=== PATIENT | female | born 2000 | race Caucasian/White ===

== ENCOUNTER → 2021-12-08 09:34 | Outpatient (BNVA) | payer OTHER, SELFPAY | PROVIDERS: Visit Provider Family Medicine Adult Medicine | DX: R39.9 Unspecified symptoms and signs involving the genitourinary system (principal); N20.0 Calculus of kidney; N39.0 Urinary tract infection, site not specified; Z68.29 Body mass index [BMI] 29.0-29.9, adult | CPT/HCPCS: 81000 ==

== ENCOUNTER → 2022-03-15 10:57 | Outpatient (BNVA) | payer OTHER, SELFPAY | PROVIDERS: Visit Provider Internal Medicine Rheumatology | DX: M06.9 Rheumatoid arthritis, unspecified (principal); R76.8 Other specified abnormal immunological findings in serum; Z79.899 Other long term (current) drug therapy; M05.79 Rheumatoid arthritis with rheumatoid factor of multiple sites without organ or systems involvement; Z71.85 Encounter for immunization safety counseling; Z11.59 Encounter for screening for other viral diseases | CPT/HCPCS: 80076; 82306; 82565; 85025; 85651; 86140; 86235; 86376; 86704; 86803; 87340 ==

== ENCOUNTER 2022-04-04 16:42 | Outpatient (CLI) | payer OTHER, SELFPAY ==
[2022-04-04 17:49] LABS: Basophils % 0.6 %; Eosinophils # 0.3 10^3/uL (0.0-0.8); Eosinophils % 3.7 %; Hematocrit 38.6 % (37.0-47.0); Hemoglobin 12.5 g/dL (11.5-15.3); Lymphocytes # 2.9 10^3/uL (0.8-4.8); Lymphocytes % 41.4 %; Mean Corpuscular HGB Conc 32.4 g/dL (30.0-36.0); Mean Corpuscular Hemoglobin 28.2 pg (28.0-34.0); Mean Corpuscular Volume 86.9 fl (81-99); Mean Platelet Volume 10.1 fL (7.4-10.4); Monocytes # 0.6 10^3/uL (0.2-0.9); Monocytes % 8.1 %; Neutrophils # 3.22 10^3/uL (1.8-7.7); Neutrophils % 46.1 %; Nucleated Red Blood Cells % 0 %; Platelet Count 363 10^3/cmm (130-400); Red Blood Count 4.44 10^6/uL (4.1-5.3); Red Cell Distribution Width 12.7 % (12.1-15.1)
[2022-04-04 17:57] LABS: Erythrocyte Sedimentation Rate < 1 mm/hr (0-15)
[2022-04-04 22:13] LABS: Thyroid Stimulating Hormone 4.34 uIU/mL (0.27-4.20)
== END 2022-04-04 16:43 | disposition home or self-care (01) ==
LOC: LAB 16:47
PROVIDERS: PCP Nurse Practitioner Acute Care; Visit Provider Internal Medicine Rheumatology
DX: M05.79 Rheumatoid arthritis with rheumatoid factor of multiple sites without organ or systems involvement (principal); R76.8 Other specified abnormal immunological findings in serum; Z79.899 Other long term (current) drug therapy; M06.9 Rheumatoid arthritis, unspecified
CPT/HCPCS: 84439; 84443; 85025; 85651

== ENCOUNTER → 2022-11-07 10:20 | Outpatient (BNVA) | payer OTHER, SELFPAY | PROVIDERS: PCP Nurse Practitioner Acute Care; Visit Provider Nurse Practitioner | DX: R39.9 Unspecified symptoms and signs involving the genitourinary system (principal); J01.90 Acute sinusitis, unspecified; J32.9 Chronic sinusitis, unspecified | CPT/HCPCS: 81000; 81025 ==

== ENCOUNTER → 2023-01-15 16:00 | Outpatient (BNVA) | payer OTHER, SELFPAY | PROVIDERS: PCP Nurse Practitioner Acute Care; Visit Provider Obstetrics & Gynecology | DX: Z00.00 Encounter for general adult medical examination without abnormal findings (principal); Z12.4 Encounter for screening for malignant neoplasm of cervix | CPT/HCPCS: 84443; 85025; 88175 ==

== ENCOUNTER → 2023-02-06 07:54 | Outpatient (BNVA) | payer OTHER, SELFPAY | PROVIDERS: PCP Nurse Practitioner Acute Care; Visit Provider Obstetrics & Gynecology | DX: N93.9 Abnormal uterine and vaginal bleeding, unspecified (principal) | CPT/HCPCS: 76830 ==

== ENCOUNTER 2023-04-18 08:09 | Outpatient (CLI) | payer OTHER, SELFPAY ==
[2023-04-18 09:05] LABS: Estmated Average Glucose 94; Hemoglobin A1C 4.9 % (4.0-6.0)
[2023-04-18 09:12] LABS: Free T4 Free Thyroxine 1.25 ng/dL (0.82-1.77); Testosterone Total 143.6 ng/dL (8.4-48.1); Thyroid Stimulating Hormone 5.87 uIU/mL (0.27-4.20)
== END 2023-04-18 08:10 | disposition home or self-care (01) ==
PROVIDERS: PCP Nurse Practitioner Acute Care; Visit Provider Internal Medicine
DX: E03.9 Hypothyroidism, unspecified (principal); Z78.9 Other specified health status; E06.3 Autoimmune thyroiditis; N92.6 Irregular menstruation, unspecified; R63.5 Abnormal weight gain
CPT/HCPCS: 36415; 83036; 84403; 84439; 84443

== ENCOUNTER 2023-04-19 15:34 | Outpatient (CLI) | payer OTHER, SELFPAY ==
[2023-04-19 17:00] LABS: Follicle Stimulating Hormone 5.2 mIU/mL; Prolactin 14.53 ng/mL (4.8-23.3)
[2023-04-22 15:49] LABS: Dehydroepiandrosterone Sulfate 266 mcg/dL (14-349)
== END 2023-04-19 15:35 | disposition home or self-care (01) ==
LOC: LAB 15:37
PROVIDERS: PCP Nurse Practitioner Acute Care; Visit Provider Internal Medicine
DX: E03.8 Other specified hypothyroidism (principal); E28.2 Polycystic ovarian syndrome; R63.5 Abnormal weight gain; R79.89 Other specified abnormal findings of blood chemistry
CPT/HCPCS: 36415; 82627; 83001; 83498; 84146; 84702

== ENCOUNTER 2023-04-25 07:15 | Outpatient (CLI) | payer OTHER, SELFPAY ==
[2023-04-25 08:11] LABS: Testosterone Total 81.7 ng/dL (8.4-48.1)
== END 2023-04-25 07:16 | disposition home or self-care (01) ==
PROVIDERS: PCP Nurse Practitioner Acute Care; Visit Provider Internal Medicine
DX: E03.8 Other specified hypothyroidism (principal); E28.2 Polycystic ovarian syndrome; R63.5 Abnormal weight gain; R79.89 Other specified abnormal findings of blood chemistry
CPT/HCPCS: 36415; 84403

== ENCOUNTER → 2023-05-06 16:20 | Outpatient (BNVA) | payer OTHER, SELFPAY | PROVIDERS: PCP Nurse Practitioner Acute Care; Visit Provider Emergency Medicine | DX: R30.0 Dysuria (principal) | CPT/HCPCS: 81000 ==

== ENCOUNTER 2023-09-30 08:46 | Outpatient (CLI) | payer OTHER, SELFPAY | END 2023-09-30 08:47 | disposition home or self-care (01) | LOC: LAB 08:47 | PROVIDERS: PCP Nurse Practitioner Acute Care; Visit Provider Internal Medicine | DX: N92.6 Irregular menstruation, unspecified (principal) | CPT/HCPCS: 36415; 84702 ==

== ENCOUNTER 2023-10-02 07:45 | Outpatient (CLI) | payer OTHER, SELFPAY ==
[2023-10-02 08:20] LABS: HCG Quantitative 4.18 mIU/mL
== END 2023-10-02 07:46 | disposition home or self-care (01) ==
LOC: LAB 07:46
PROVIDERS: PCP Nurse Practitioner Acute Care; Visit Provider Obstetrics & Gynecology
DX: N92.6 Irregular menstruation, unspecified (principal)
CPT/HCPCS: 36415; 84702

== ENCOUNTER 2023-10-02 09:07 | Emergency (ER) | payer OTHER, SELFPAY ==
[2023-10-02 09:14] VITALS: BMI 35.4
[2023-10-02 09:16] VITALS: BP 135/82; PULSE 89; RESP 16; TEMP 37.1; O2SAT 98
--- NOTE | 2023-10-02 09:54 | ED_ITS ---
HPI - 2 General: Chief complaint: Vaginal Bleeding Stated complaint: abd pain, vaginal bleeding 3-4 weeks Time Seen by Provider: 10/02/23 09:54 Source: patient Mode of arrival: ambulatory History of Present Illness: 23-year-old female presents emergency ro om with complaint of left-sided pelvic pain and vaginal bleeding began this morning. She recently had a home positive test had a beta-hCG 2 days ago that was 17. She has a history of PCOS and previous first trimester miscarriage 4 months ago. No recent illness fever sweats or chills she previously had an appendectomy no previous tubal pregnancies. MD Complaint: abdominal pain and vaginal bleeding Onset (ago): hour(s) Pain Consistency: constant Location: pelvis Severity: severe Quality: Cramping Relieving factors: none Exacerbating factors: none Vaginal bleeding: heavy Associated symptoms: Reports vaginal bleeding; Deny abdominal pain, dyspareunia, dysuria, headache(s), malaise, nausea, rash, seizures, short of breath, syncope, vaginal discharge, visual changes, vomiting or weakness Review of Systems 2 Const: Denies: fever(s), chills or malaise Card: Denies: chest pain or syncope Resp: Denies: dyspnea GI: Denies: abdominal pain, nausea or vomiting : Denies: dysuria, urinary frequency, urinary urgency, vaginal discharge or dyspareunia Musc: Denies: neck pain or back pain Skin/Breast: Denies: rash Neuro: Denies: headache(s) PFSH ED 2 PFSH: Medical History Tinea corporis Hypothyroidism PCOS (polycystic ovarian syndrome) Irregular periods High risk medication use PSVT (paroxysmal supraventricular tachycardia) BBB (bundle branch block) Right Kidney stone on left side Surgical History S/P ACL repair History of appendectomy Family History Brother Rheumatoid arthritis Other CAD (coronary artery disease) Diabetes Family history of premature coronary artery disease Hyperlipidemia Hypertension Denies family history of Colon cancer Ovarian cancer Heart disease Breast cancer Uterine cancer Thyroid disease Stroke Social History Smoking and tobacco/nicotine status: never used tobacco/nicotine Physical Exam 2 Const: GENERAL APPEARANCE: cooperative and comfortable O RIENTATION/CONSCIOUSNESS: Yes awake HENMT: COMMON NORMALS: normocephalic, atraumatic and hearing grossly normal bilaterally HEAD & SCALP: normocephalic and atraumatic Resp: COMMON NORMALS: normal respiratory effort, No retractions, No use of accessory muscles and clear to auscultation bilaterally AUSCULTATION: clear to auscultation bilaterally Cardio: COMMON NORMALS: regular rate, regular rhythm and No murmurs present (Cardio) RATE: regular rate RHYTHM: regular rhythm GI: COMMON NORMALS: No hepatosplenomegaly present AUSCULTATION: Yes normoactive bowel sounds PALPATION: Yes Tenderness to palpation present (GI) Details: LLQ, No Guarding due to palpation present (GI) and Yes No hepatosplenomegaly present : SPECULUM EXAM - VAGINA: Yes vaginal bleeding OB/EXTERNAL & SPECULUM: v aginal bleeding Extremity: COMMON NORMALS: normal to inspection, capillary refill normal, no clubbing, cyanosis or edema, no calf tenderness and no pedal edema Skin: COMMON NORMALS: no rashes or lesions noted GENERAL SKIN EXAM: no rashes or lesions noted Course 2 Vital Signs: Vital signs: Vital Signs Temperature 98.7 F 10/02/23 09:16 Pulse Rate 68 10/02/23 12:20 Respiratory Rate 18 10/02/23 10:48 Blood Pressure 131/92 10/02/23 12:20 Pulse Oximetry 96 10/02/23 12:20 Oxygen Delivery Me thod Room Air 10/02/23 12:20 MDM - OB/Uterine Contractions Medical Decision Making Labs reviewed. Beta-hCG is undetectable was 17 earlier this week. She did have some products of conception at the office on pelvic exam. These were removed. Minimal bleeding from the os at this time. Pain improved with ketorolac and morphine given. Will discharge patient home hydrocodone to use as needed recheck if has any worsening problems. Follow-up with primary care. Medical Records I reviewed the patient's medical records. Lab Data I reviewed the patient's lab results. 10/02/23 09:46 10/02/23 09:46 Laboratory Results WBC 8.24 10^3/uL (3.29-11.43) 10/02/23 09:46 RBC 4.97 10^6/uL (3.85-5.65) 10/02/23 09:46 Hgb 13.40 g/dL (11.27-16.99) 10/02/23 09:46 Hct 41.2 % (36-47) 10/02/23 09:46 MCV 82.9 fl (85-98) L 10/02/23 09:46 MCH 27.0 pg (27-33) 10/02/23 09:46 MCHC 32.5 g/dL (30-55) 10/02/23 09:46 RDW 13.6 % (12.1-15.1) 10/02/23 09:46 Plt Count 401 10^3/cmm (157-399) H 10/02/23 09:46 MPV 9.5 fL (7.4-10.4) 10/02/23 09:46 Neut % (Auto) 66.9 % 10/02/23 09:46 Lymph % (Auto) 25.1 % 10/02/23 09:46 [place] % (Auto) 5.8 % 10/02/23 09:46 Eos % (Auto) 1.5 % 10/02/23 09:46 Baso % (Auto) 0.5 % 10/02/23 09:46 Neut # (Auto) 5.51 10^3/uL (1.8-7.7) 10/02/23 09:46 Lymph # (Auto) 2.1 10^3/uL (0.8-4.8) 10/02/23 09:46 [place] # (Auto) 0.5 10^3/uL (0.2-0.9) 10/02/23 09:46 Eos # (Auto) 0.1 10^3/uL (0.0-0.8) 10/02/23 09:46 Baso # (Auto) 0.0 10^3/uL (0.0-0.1) 10/02/23 09:46 Nucleated RBC % (auto) 0 % 10/02/23 09:46 Nucleated RBCs # 0.0 /100WBC 10/02/23 09:46 Sodium 139 mmol/L (136-145) 10/02/23 09:46 Potassium 3.8 mmol/L (3.5-5.1) 10/02/23 09:46 Chloride 106 mmol/L (98-107) 10/02/23 09:46 Carbon Dioxide 24 mmol/L (22-29) 10/02/23 09:46 Anion Gap 12.8 (5-19) 10/02/23 09:46 BUN 11 mg/dL (6-20) 10/02/23 09:46 Creatinine 0.7 mg/dL (0.5-0.9) 10/02/23 09:46 GFR Calculation 102.8 mL/min (90-130) 10/02/23 09:46 Glucose 100 mg/dL (65-115) 10/02/23 09:46 Calculated Osmolality 287 mOsm/kg (285-295) 10/02/23 09:46 Calcium 9.3 mg/dL (8.5-10.5) 10/02/23 09:46 Total Bilirubin 0.3 mg/dL (0.15-1.2) 10/02/23 09:46 AST 19 U/L (0-32) 10/02/23 09:46 ALT 27 U/L (0-33) 10/02/23 09:46 Alkaline Phosphatase 73 U/L (35-105) 10/02/23 09:46 Total Protein 7.1 g/dL (6.6-8.7) 10/02/23 09:46 Albumin 4.0 g/dL (3.5-5.2) 10/02/23 09:46 Globulin 3.1 g/dL (1.3-4.6) 10/02/23 09:46 HCG, Qual Negative (Negative) 10/02/23 09:46 Blood Type A Positive 10/02/23 09:46 Rho(D) Type Rh positive 10/02/23 09:46 No radiology studies performed this visit Discharge Plan Discharge Patient Disposition: Home Clinical Impression: Miscarriage Condition: Stable Prescriptions: New hydrocodone-acetaminophen 5-325 mg tablet 1 tab PO Q6H PRN (Reason: pain) Qty: 10 0RF Discharge Orders: Discharge ED (Routine); Ordered 10/02/23 Ordered By: Shaun Sanchez Referrals: Orestes Peterson MD [Primary Care Provider] - Patient Instructions: Miscarriage (ED), Opioid Safety, Pain Management Activity Restrictions/Additional Instructions: Thank you for choosing [facility] for your healthcare needs today. Please realize this is an emergency room and that we are providing you with a medical screening exam and this may not be complete and all inclusive of all the testing and or work up that you may need to determine your ailment or severity of your illness. It is very important that you follow up as instructed or that you return to the Emergency Department should you have concerns or if your condition changes or worsens in any way. Coding Level of Care Code ED Hourly Sign Language Interpreter for Paulina Sawant
[2023-10-02 09:55] LABS: Basophils % 0.5 %; Eosinophils # 0.1 10^3/uL (0.0-0.8); Eosinophils % 1.5 %; Hematocrit 41.2 % (36-47); Lymphocytes # 2.1 10^3/uL (0.8-4.8); Lymphocytes % 25.1 %; Mean Corpuscular HGB Conc 32.5 g/dL (30-55); Mean Corpuscular Volume 82.9 fl (85-98); Mean Platelet Volume 9.5 fL (7.4-10.4); Monocytes # 0.5 10^3/uL (0.2-0.9); Monocytes % 5.8 %; Neutrophils # 5.51 10^3/uL (1.8-7.7); Neutrophils % 66.9 %; Nucleated Red Blood Cells % 0 %; Platelet Count 401 10^3/cmm (157-399); Red Blood Count 4.97 10^6/uL (3.85-5.65); Red Cell Distribution Width 13.6 % (12.1-15.1); White Blood Count 8.24 10^3/uL (3.29-11.43)
[2023-10-02 10:15] LABS: HCG, Serum Qual Negative (Negative)
[2023-10-02 10:17] LABS: Alanine Aminotransferase 27 U/L (0-33); Alkaline Phosphatase 73 U/L (35-105); Anion Gap 12.8 (5-19); Aspartate Amino Transferase 19 U/L (0-32); Blood Urea Nitrogen 11 mg/dL (6-20); Calcium 9.3 mg/dL (8.5-10.5); Carbon Dioxide 24 mmol/L (22-29); Chloride 106 mmol/L (98-107); Globulin 3.1 g/dL (1.3-4.6); Glomerular Filtration Rate 102.8 mL/min (90-130); Glucose 100 mg/dL (65-115); Osmolality Calculated 287 mOsm/kg (285-295); Potassium 3.8 mmol/L (3.5-5.1); Sodium 139 mmol/L (136-145); Total Bilirubin 0.3 mg/dL (0.15-1.2); Total Protein 7.1 g/dL (6.6-8.7)
[2023-10-02 10:48] VITALS: RESP 18
[2023-10-02] MEDS: ketorolac 30 mg/mL INJ IVP (12:17)
[2023-10-02] MEDS: morphine 4 mg/mL SDV 1 mL IVP (12:19)
[2023-10-02 12:20] VITALS: BP 131/92; PULSE 68; O2SAT 96
== END 2023-10-02 13:04 | disposition home or self-care (01) ==
PROVIDERS: Emergency Provider Family Medicine; PCP Family Medicine Adult Medicine
DX: O03.9 Complete or unspecified spontaneous abortion without complication (principal)
CPT/HCPCS: 36415; 80053; 84703; 85025; 86850; 86900; 96374; 96375; 99284; J1885; J2270

== ENCOUNTER → 2023-10-16 09:45 | Outpatient (BNVA) | payer OTHER, SELFPAY | PROVIDERS: PCP Family Medicine Adult Medicine; Visit Provider Obstetrics & Gynecology | DX: N92.6 Irregular menstruation, unspecified (principal) | CPT/HCPCS: 84146; 84443 ==

== ENCOUNTER 2023-12-10 08:14 | Outpatient (CLI) | payer OTHER, SELFPAY ==
[2023-12-10 09:30] LABS: Free T4 Free Thyroxine 1.27 ng/dL (0.82-1.77); Thyroid Stimulating Hormone 3.72 uIU/mL (0.27-4.20)
== END 2023-12-10 08:15 | disposition home or self-care (01) ==
LOC: LAB 08:15
PROVIDERS: PCP Family Medicine Adult Medicine; Visit Provider Internal Medicine
DX: E03.8 Other specified hypothyroidism (principal); E06.3 Autoimmune thyroiditis
CPT/HCPCS: 36415; 84439; 84443

== ENCOUNTER 2024-02-07 16:32 | Outpatient (CLI) | payer OTHER, SELFPAY ==
[2024-02-07 18:04] LABS: Cholesterol 188 mg/dL (0-200); HDL Cholesterol 33 mg/dL (60-100); LDL Cholesterol Calculated 131 mg/dL (50-129); LDL HDL Ratio 3.97 RATIO (0.00-3.22); Triglycerides 118 mg/dL (0-150)
== END 2024-02-07 16:33 | disposition home or self-care (01) ==
LOC: LAB 16:34
PROVIDERS: PCP Family Medicine Adult Medicine; Visit Provider Internal Medicine
DX: E03.9 Hypothyroidism, unspecified (principal)
CPT/HCPCS: 36415; 80061; 83525

== ENCOUNTER → 2024-02-10 12:47 | Outpatient (BNVA) | payer OTHER, SELFPAY | PROVIDERS: PCP Family Medicine Adult Medicine; Visit Provider Internal Medicine | DX: E03.9 Hypothyroidism, unspecified (principal) | CPT/HCPCS: 36415; 83525 ==

== ENCOUNTER 2024-02-19 10:55 | Outpatient (CLI) | payer OTHER, SELFPAY ==
[2024-02-19 11:36] LABS: HCG Quantitative 69.78 mIU/mL
== END 2024-02-19 10:56 | disposition home or self-care (01) ==
LOC: LAB 10:56
PROVIDERS: PCP Family Medicine Adult Medicine; Visit Provider Obstetrics & Gynecology
DX: N92.6 Irregular menstruation, unspecified; E03.9 Hypothyroidism, unspecified
CPT/HCPCS: 36415; 84702

== ENCOUNTER 2024-02-21 11:45 | Outpatient (CLI) | payer OTHER, SELFPAY | END 2024-02-21 11:46 | disposition home or self-care (01) | LOC: LAB 11:48 | PROVIDERS: PCP Family Medicine Adult Medicine; Visit Provider Obstetrics & Gynecology | DX: N92.6 Irregular menstruation, unspecified (principal) | CPT/HCPCS: 84702 ==

== ENCOUNTER → 2024-04-01 09:02 | Outpatient (BNVA) | payer OTHER, SELFPAY | PROVIDERS: PCP Family Medicine Adult Medicine; Visit Provider Nurse Practitioner Women's Health | DX: N92.6 Irregular menstruation, unspecified (principal); I48.91 Unspecified atrial fibrillation; I47.10 Supraventricular tachycardia, unspecified | CPT/HCPCS: 80307; 81025; 84315; 84439; 84443; 84481; 85025; 86592; 86762; 86803; 86850; 86900; 87077; 87086; 87184; 87340; 87491; 87591; 87806 ==

== ENCOUNTER → 2024-04-08 14:20 | Outpatient (BNVA) | payer OTHER, SELFPAY | PROVIDERS: PCP Family Medicine Adult Medicine; Visit Provider Nurse Practitioner Women's Health | DX: Z36.87 Encounter for antenatal screening for uncertain dates (principal) | CPT/HCPCS: 76801 ==

== ENCOUNTER → 2024-04-14 09:42 | Outpatient (BNVA) | payer OTHER, SELFPAY | PROVIDERS: PCP Family Medicine Adult Medicine; Visit Provider Nurse Practitioner Women's Health | DX: Z34.90 Encounter for supervision of normal pregnancy, unspecified, unspecified trimester (principal) | CPT/HCPCS: 84439; 84443; 84481 ==

== ENCOUNTER → 2024-04-30 14:42 | Outpatient (BNVA) | payer OTHER, SELFPAY | PROVIDERS: PCP Family Medicine Adult Medicine; Visit Provider Internal Medicine | DX: R00.1 Bradycardia, unspecified (principal) | CPT/HCPCS: 93005 ==

== ENCOUNTER → 2024-05-14 08:18 | Outpatient (BNVA) | payer OTHER, SELFPAY | PROVIDERS: PCP Family Medicine Adult Medicine; Visit Provider Nurse Practitioner Women's Health | DX: O23.41 Unspecified infection of urinary tract in pregnancy, first trimester (principal); Z3A.10 10 weeks gestation of pregnancy; E06.3 Autoimmune thyroiditis; E03.9 Hypothyroidism, unspecified | CPT/HCPCS: 82105; 84315; 84443 ==

== ENCOUNTER → 2024-05-28 09:48 | Outpatient (BNVA) | payer OTHER, SELFPAY | PROVIDERS: PCP Family Medicine Adult Medicine; Visit Provider Nurse Practitioner Women's Health | DX: O20.8 Other hemorrhage in early pregnancy (principal); Z3A.00 Weeks of gestation of pregnancy not specified | CPT/HCPCS: 76815; 84315 ==

== ENCOUNTER → 2024-06-11 14:16 | Outpatient (BNVA) | payer OTHER, SELFPAY | PROVIDERS: PCP Family Medicine Adult Medicine; Visit Provider Obstetrics & Gynecology | DX: Z36.2 Encounter for other antenatal screening follow-up (principal); Z3A.19 19 weeks gestation of pregnancy | CPT/HCPCS: 76805 ==

== ENCOUNTER → 2024-07-08 13:42 | Outpatient (BNVA) | payer OTHER, SELFPAY | PROVIDERS: PCP Family Medicine Adult Medicine; Visit Provider Nurse Practitioner Women's Health | DX: Z34.90 Encounter for supervision of normal pregnancy, unspecified, unspecified trimester (principal); Z3A.10 10 weeks gestation of pregnancy | CPT/HCPCS: 84315; 84443; 87086 ==

== ENCOUNTER → 2024-08-06 14:09 | Outpatient (BNVA) | payer OTHER, SELFPAY | PROVIDERS: PCP Family Medicine Adult Medicine; Visit Provider Nurse Practitioner Women's Health | DX: Z34.93 Encounter for supervision of normal pregnancy, unspecified, third trimester (principal) | CPT/HCPCS: 82950; 84315; 85025 ==

== ENCOUNTER → 2024-08-13 08:45 | Outpatient (BNVA) | payer OTHER, SELFPAY | PROVIDERS: PCP Family Medicine Adult Medicine; Visit Provider Obstetrics & Gynecology | DX: Z34.92 Encounter for supervision of normal pregnancy, unspecified, second trimester (principal) | CPT/HCPCS: 82951; 82952 ==

== ENCOUNTER 2024-09-14 05:42 | Outpatient (CLI) | payer OTHER, SELFPAY ==
[2024-09-14] VITALS (40 sets, daily range): BP systolic 129; BP diastolic 85; PULSE 81–127; O2SAT 86–100; BMI 40.0
[2024-09-14] MEDS: lactated ringers 1,000 ML 999 ML IV (06:15)
[2024-09-14] MEDS: promethazine 25 mg/mL SDV 1 mL IM (06:15)
[2024-09-14] MEDS: ondansetron 2 mg/ML SDV 2 mL 4 MG IVP (08:14)
== END 2024-09-14 09:00 | disposition home or self-care (01) ==
LOC: OPOB 05:43 → OBGYN 05:44
PROVIDERS: PCP Family Medicine Adult Medicine; Visit Provider Obstetrics & Gynecology
DX: O21.9 Vomiting of pregnancy, unspecified (principal); Z3A.00 Weeks of gestation of pregnancy not specified; R19.7 Diarrhea, unspecified
CPT/HCPCS: 59025; 96372; 99211; J2405; J2550; J7120

== ENCOUNTER 2024-09-28 09:18 | Outpatient (CLI) | payer OTHER, SELFPAY ==
[2024-09-28] VITALS (9 sets, daily range): BP systolic 130–142; BP diastolic 84–97; PULSE 70–83; BMI 40.7
[2024-09-28 10:31] LABS: Basophils % 0.2 %; Eosinophils # 0.1 10^3/uL (0.0-0.8); Eosinophils % 1.2 %; Hematocrit 33.9 % (36-47); Lymphocytes # 2.4 10^3/uL (0.8-4.8); Lymphocytes % 21.5 %; Mean Corpuscular HGB Conc 31.6 g/dL (30-55); Mean Corpuscular Hemoglobin 26.2 pg (27-33); Mean Corpuscular Volume 82.9 fl (85-98); Mean Platelet Volume 10.3 fL (7.4-10.4); Monocytes # 0.6 10^3/uL (0.2-0.9); Monocytes % 5.3 %; Neutrophils # 7.84 10^3/uL (1.8-7.7); Neutrophils % 71.2 %; Nucleated Red Blood Cells % 0 %; Platelet Count 436 10^3/cmm (157-399); Red Blood Count 4.09 10^6/uL (3.85-5.65); Red Cell Distribution Width 13.2 % (12.1-15.1)
[2024-09-28 10:38] LABS: Bilirubin Urine Negative (Negative); Blood Urine Negative (Negative); Glucose Urine UA Negative (Normal); Ketones Urine Negative (Negative); Leukocyte Esterase Urine 1+ (Negative); Nitrate Urine Negative (Negative); Protein Urine Negative (Negative); Specific Gravity, Urine 1.007 (1.005-1.030); Urine Appearance Clear (CLEAR); Urine Color Yellow (Yellow); Urobilinogen Urine 0.2 mg/dL (Negative); pH Urine 6.5 (5-7)
[2024-09-28 10:45] LABS: Alanine Aminotransferase 8 U/L (0-33); Albumin Level 3.4 g/dL (3.5-5.2); Alkaline Phosphatase 152 U/L (35-105); Anion Gap 17.8 (5-19); Blood Urea Nitrogen 8 mg/dL (6-20); Calcium 8.8 mg/dL (8.5-10.5); Carbon Dioxide 19 mmol/L (22-29); Chloride 103 mmol/L (98-107); Globulin 3.3 g/dL (1.3-4.6); Glomerular Filtration Rate 121.8 mL/min (90-130); Glucose 170 mg/dL (65-115); Osmolality Calculated 284 mOsm/kg (285-295); Potassium 3.8 mmol/L (3.5-5.1); Sodium 136 mmol/L (136-145); Total Bilirubin 0.2 mg/dL (0.15-1.2); Total Protein 6.7 g/dL (6.6-8.7); Uric Acid 3.8 mg/dL (2.4-5.7)
[2024-09-28 10:50] LABS: Add Urine Microscopic? YES; Bacteria Urine 1+ /hpf; Hyaline Casts Urine 0-4 /lpf; RBC Urine 0-2 /hpf (0-2)
[2024-09-28 10:53] LABS: Add Urine Culture? No; Aspartate Amino Transferase 5 U/L (0-32); Urine Creatinine 45 mg/dL (28-217); Urine Protein Random 5 mg/dL
[2024-09-28 10:55] LABS: UPRO/UCREAT Ratio 0.11 mg/mg CR
--- NOTE | 2024-09-28 11:36 | P.TNLD_ITS ---
OB L&D Triage Visit Information: Date of evaluation: 09/28/24 Reason for evaluation: other Comments/Additional reason(s) for visit: 24-year-old female G3, P0 at 35.3 weeks gestation with DEN 10/30/2024 sent from the clinic after seeing Dr. Rust. Patient was noted to have increase blood pressure of 142/94. Patient was observed on labor and delivery with blood pressure ranging from 140/90-130/88. Patient admits to having a mild headache over the weekend but denies blurred vision or spots before her eyes, chest pain or shortness of breath. She denies any vaginal bleeding. Patient admits to good movement. I reviewed elevated blood pressure readings and cautioned her on - induced hypertension if decreased movement, worsening of her headache, blurred vision or spots before eyes or abdominal pain patient is to return to labor and delivery. I discussed patient with Dr. Rust, her blood pressure readings and lab, the plan is to send her home on labetalol 100 mg daily and follow-up on Saturday for NST and serial blood pressure monitoring. This was reviewed with patient, patient verbalizes understanding and agrees with plan. Evaluation: monitor accelerations: Present 15x15 Laboratory results: Laboratory Tests 09/28/24 10:15 WBC 11.00 RBC 4.09 Hgb 10.70 L Hct 33.9 L MCV 82.9 L MCH 26.2 L MCHC 31.6 RDW 13.2 Plt Count 436 H MPV 10.3 Neut % (Auto) 71.2 Lymph % (Auto) 21.5 [place] % (Auto) 5.3 Eos % (Auto) 1.2 Baso % (Auto) 0.2 Neut # (Auto) 7.84 H Lymph # (Auto) 2.4 [place] # (Auto) 0.6 Eos # (Auto) 0.1 Baso # (Auto) 0.0 Nucleated RBC % (a uto) 0 Nucleated RBCs # 0.0 Sodium 136 Potassium 3.8 Chloride 103 Carbon Dioxide 19 L Anion Gap 17.8 BUN 8 Creatinine 0.6 GFR Calculation 121.8 Glucose 170 H Calculated Osmolal ity 284 L Uric Acid 3.8 Calcium 8.8 Total Bilirubin 0.2 AST 5 ALT 8 Alkaline Phosphata se 152 H Total Protein 6.7 Albumin 3.4 L Globulin 3.3 Urine Color Yellow Urine Appearance Clear Urine pH 6.5 Ur Specific Gravit y 1.007 Urine Protein Negative Urine Glucose (UA) Negative Urine Ketones Negative Urine Blood Negative Urine Nitrate Negative Urine Bilirubin Negative Urine Urobilinogen 0.2 Ur Leukocyte Kaela ase 1+ A Urine RBC 0-2 Urine WBC 6-10 Ur Squamous Epith Cells 6-10 Amorphous Sediment Not Reportable Urine Bacteria 1+ H Hyaline Casts 0-4 H U Random Total Pro tein 5 Urine Creatinine 45 Protein/Creatinin Ratio 0.11 Vital signs: Vital Signs - 24 hr 09/28/24 09:29 09/28/24 09:44 09/28/24 09:59 Pulse Rate 80 75 83 Blood Pressure 142/97 132/89 130/88 09/28/24 10:14 09/28/24 10:29 09/28/24 10:44 Pulse Rate 79 83 83 Blood Pressure 130/88 134/87 134/84 09/28/24 10:59 09/28/24 11:14 09/28/24 11:29 Pulse Rate 80 70 75 Blood Pressure 136/87 134/90 133/90 Care DEN Calculator Estimated Delivery Date Method Current WG Current Estimate 10/30/24 Ultrasound #1 35w 3d Specific Issues/Plans * 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 * HASHIMOTOS DISEASE: taking 50 mcg daily, last TSH in 04/2024 WNL * ASTHMA * PSVT * A-FIB: had cardiology consult, echo ordered just for caution, swimming pool attendant is not concerned at this time * NAUSEA AND VOMITING IN : much better * UTI IN : culture positive on 04/01/24 FOR KLEBSIELLA, repeat urine culture 07/08/24 negative * FAMILY HX OF SPINA BIFIDA : reports that father had spina bifida and from complications * VAGINAL BLEEDING IN : resolved, doing well * ELEVATED 1 HOUR GLUCOSE: 08/06/24 160, 3 hr gtt test normal Final Diagnosis Final Diagnosis (1) 35 weeks gestation of : Status: Acute Code(s): Z3A.35 - 35 weeks gestation of (2) Gestational hypertension: Plan: 1. NST with PIH lab to be repeated on Saturday here in labor and delivery 2. Rx for labetalol 100 mg daily 3. DC patient to home, precautions given for severe headache, visual changes, chest pain, shortness of breath or abdominal pain to return to labor and delivery as well as if decreased movement occurs. Status: Acute Code(s): O13.9 - Gestational [-induced] hypertension without significant proteinuria, unspecified trimester Coding Level of Care Code Acute Code for Chg Fwd Diagnoses 35 weeks gestation of Z3A.35 Gestational hypertension O13.9
== END 2024-09-28 12:00 | disposition home or self-care (01) ==
LOC: OPOB 09:19 → OBGYN 09:20
PROVIDERS: PCP Family Medicine Adult Medicine; Visit Provider Obstetrics & Gynecology
DX: O13.3 Gestational [pregnancy-induced] hypertension without significant proteinuria, third trimester (principal); Z3A.35 35 weeks gestation of pregnancy
CPT/HCPCS: 59025; 80053; 81001; 82570; 84156; 84315; 84550; 85025; 87086; 99211

== ENCOUNTER 2024-09-30 15:09 | Outpatient (CLI) | payer OTHER, SELFPAY ==
[2024-09-30 15:10] VITALS: BMI 41.4
[2024-09-30 15:22] VITALS: BP 139/84; PULSE 81
[2024-09-30 15:37] VITALS: BP 135/93; PULSE 80
[2024-09-30 15:52] VITALS: BP 140/95; PULSE 78
[2024-09-30 16:00] VITALS: BP 140/95; PULSE 78; O2SAT 98
== END 2024-09-30 16:00 ==
LOC: OPOB 15:11 → OBGYN 15:15
PROVIDERS: PCP Family Medicine Adult Medicine; Visit Provider Obstetrics & Gynecology
DX: O24.419 Gestational diabetes mellitus in pregnancy, unspecified control (principal); Z3A.00 Weeks of gestation of pregnancy not specified
CPT/HCPCS: 59025

== ENCOUNTER → 2024-10-01 12:22 | Outpatient (BNVA) | payer OTHER, SELFPAY | PROVIDERS: PCP Family Medicine Adult Medicine; Visit Provider Nurse Practitioner Women's Health | DX: Z34.93 Encounter for supervision of normal pregnancy, unspecified, third trimester (principal); Z3A.36 36 weeks gestation of pregnancy | CPT/HCPCS: 76816 ==

== ENCOUNTER 2024-10-02 12:35 | Outpatient (CLI) | payer OTHER, SELFPAY ==
[2024-10-02 12:35] VITALS: BMI 41.6
[2024-10-02 12:46] VITALS: BP 135/87; PULSE 72
[2024-10-02 13:02] VITALS: BP 134/87; PULSE 68
[2024-10-02 13:12] LABS: Total Volume, Urine 3850 mL
[2024-10-02 13:35] LABS: Urine Total Protein 6.4 mg/dL (0-150); Urine Total Protein 24 Hour 246.4 mg/24hr (0-150)
== END 2024-10-02 13:16 | disposition home or self-care (01) ==
LOC: OPOB 12:37 → OBGYN 12:42
PROVIDERS: PCP Family Medicine Adult Medicine; Visit Provider Obstetrics & Gynecology
DX: O24.419 Gestational diabetes mellitus in pregnancy, unspecified control (principal); Z3A.00 Weeks of gestation of pregnancy not specified
CPT/HCPCS: 59025; 84156; 99211

== ENCOUNTER 2024-10-04 15:33 | Outpatient (CLI) | payer OTHER, SELFPAY ==
[2024-10-04 15:33] VITALS: RESP 17; BMI 41.6
[2024-10-04 15:45] VITALS: BP 119/85; PULSE 76
[2024-10-04 16:14] VITALS: BP 133/85; PULSE 68
[2024-10-04 16:57] LABS: Basophils % 0.4 %; Eosinophils # 0.1 10^3/uL (0.0-0.8); Hematocrit 34.7 % (36-47); Lymphocytes % 28.4 %; Mean Corpuscular Hemoglobin 25.9 pg (27-33); Mean Corpuscular Volume 86.3 fl (85-98); Mean Platelet Volume 10.8 fL (7.4-10.4); Monocytes # 0.6 10^3/uL (0.2-0.9); Monocytes % 5.4 %; Neutrophils # 6.78 10^3/uL (1.8-7.7); Neutrophils % 64.4 %; Nucleated Red Blood Cells % 0 %; Platelet Count 426 10^3/cmm (157-399); Red Blood Count 4.02 10^6/uL (3.85-5.65); Red Cell Distribution Width 13.5 % (12.1-15.1); White Blood Count 10.51 10^3/uL (3.29-11.43)
[2024-10-04 16:59] LABS: Bilirubin Urine Negative (Negative); Blood Urine Negative (Negative); Glucose Urine UA Negative (Normal); Ketones Urine Negative (Negative); Leukocyte Esterase Urine Trace (Negative); Nitrate Urine Negative (Negative); Protein Urine Negative (Negative); Specific Gravity, Urine 1.011 (1.005-1.030); Urine Appearance Clear (CLEAR); Urine Color Yellow (Yellow); Urobilinogen Urine 0.2 mg/dL (Negative); pH Urine 7.5 (5-7)
[2024-10-04 17:02] LABS: Add Urine Microscopic? YES; Bacteria Urine 2+ /hpf; Hyaline Casts Urine 0-4 /lpf
[2024-10-04 17:03] LABS: Add Urine Culture? Yes
[2024-10-04 17:14] LABS: Alanine Aminotransferase 12 U/L (0-33); Albumin Level 3.1 g/dL (3.5-5.2); Alkaline Phosphatase 143 U/L (35-105); Anion Gap 18.4 (5-19); Aspartate Amino Transferase 16 U/L (0-32); Blood Urea Nitrogen 6 mg/dL (6-20); Calcium 8.9 mg/dL (8.5-10.5); Carbon Dioxide 17 mmol/L (22-29); Chloride 103 mmol/L (98-107); Creatinine Clr Calc Pharmacy 201.1413; Globulin 3.1 g/dL (1.3-4.6); Glomerular Filtration Rate 150.3 mL/min (90-130); Glucose 85 mg/dL (65-115); Osmolality Calculated 275 mOsm/kg (285-295); Potassium 4.4 mmol/L (3.5-5.1); Sodium 134 mmol/L (136-145); Total Bilirubin 0.2 mg/dL (0.15-1.2); Total Protein 6.2 g/dL (6.6-8.7); Uric Acid 4.1 mg/dL (2.4-5.7)
[2024-10-04 17:17] LABS: Urine Creatinine 55 mg/dL (28-217); Urine Protein Random 6 mg/dL
[2024-10-04 17:18] LABS: UPRO/UCREAT Ratio 0.11 mg/mg CR
[2024-10-04 17:24] VITALS: BP 114/79; PULSE 82
== END 2024-10-04 17:35 | disposition home or self-care (01) ==
LOC: OPOB 15:35 → OBGYN 15:35
PROVIDERS: PCP Family Medicine Adult Medicine; Visit Provider Obstetrics & Gynecology
DX: O16.9 Unspecified maternal hypertension, unspecified trimester (principal); Z3A.00 Weeks of gestation of pregnancy not specified; R51.9 Headache, unspecified
CPT/HCPCS: 36415; 59025; 80053; 81001; 82570; 84156; 84550; 85025; 87086; 99211

== ENCOUNTER → 2024-10-05 08:13 | Outpatient (BNVA) | payer OTHER, SELFPAY | PROVIDERS: PCP Family Medicine Adult Medicine; Visit Provider Obstetrics & Gynecology | DX: Z34.90 Encounter for supervision of normal pregnancy, unspecified, unspecified trimester (principal) | CPT/HCPCS: 84315; 87081 ==

== ENCOUNTER 2024-10-07 12:05 | Outpatient (CLI) | payer OTHER, SELFPAY ==
[2024-10-07 12:05] VITALS: BMI 42.3
[2024-10-07 12:12] VITALS: BP 162/88; PULSE 59
[2024-10-07 12:27] VITALS: BP 156/91; PULSE 71
[2024-10-07 12:42] VITALS: BP 170/90; PULSE 63
[2024-10-07 12:58] VITALS: BP 197/103; PULSE 79
[2024-10-07 13:10] VITALS: BP 125/73; PULSE 67
[2024-10-07 13:11] VITALS: BP 130/82; PULSE 64
== END 2024-10-07 13:18 | disposition home or self-care (01) ==
LOC: OPOB 12:06 → OBGYN 12:06
PROVIDERS: PCP Family Medicine Adult Medicine; Visit Provider Obstetrics & Gynecology
DX: O16.9 Unspecified maternal hypertension, unspecified trimester (principal); Z3A.00 Weeks of gestation of pregnancy not specified
CPT/HCPCS: 59025; 99211

== ENCOUNTER 2024-10-08 19:00 | Outpatient (CLI) | payer OTHER, SELFPAY ==
[2024-10-08] VITALS (9 sets, daily range): BP systolic 124–157; BP diastolic 78–91; PULSE 53–81; RESP 16; O2SAT 100; BMI 42.0
[2024-10-08] MEDS: NIFEdipine ER (24 hr) 30 mg Tablet PO (19:49)
== END 2024-10-08 21:15 | disposition home or self-care (01) ==
LOC: OPOB 19:03 → OBGYN 19:04
PROVIDERS: PCP Family Medicine Adult Medicine; Visit Provider Obstetrics & Gynecology
DX: O16.9 Unspecified maternal hypertension, unspecified trimester (principal); Z3A.00 Weeks of gestation of pregnancy not specified
CPT/HCPCS: 59025; 99211

== ENCOUNTER 2024-10-09 20:47 | Outpatient (CLI) | payer OTHER, SELFPAY ==
[2024-10-09] VITALS (8 sets, daily range): BP systolic 119–137; BP diastolic 68–84; PULSE 67–82; TEMP 36.1; BMI 42.1
[2024-10-09] MEDS: NIFEdipine ER (24 hr) 30 mg Tablet PO (21:34)
== END 2024-10-09 22:45 | disposition home or self-care (01) ==
LOC: OPOB 20:47 → OBGYN 20:48
PROVIDERS: PCP Family Medicine Adult Medicine; Visit Provider Obstetrics & Gynecology
DX: O16.9 Unspecified maternal hypertension, unspecified trimester (principal); Z3A.00 Weeks of gestation of pregnancy not specified
CPT/HCPCS: 59025; 99211

== ENCOUNTER → 2024-10-12 13:59 | Outpatient (BNVA) | payer OTHER, SELFPAY | PROVIDERS: PCP Family Medicine Adult Medicine; Visit Provider Obstetrics & Gynecology | DX: Z34.90 Encounter for supervision of normal pregnancy, unspecified, unspecified trimester (principal) | CPT/HCPCS: 84315 ==

== ENCOUNTER 2024-10-13 11:40 | Outpatient (CLI) | payer OTHER, SELFPAY ==
[2024-10-13 11:36] VITALS: BMI 41.8
[2024-10-13 11:44] VITALS: BP 145/85; PULSE 71
[2024-10-13 12:00] VITALS: BP 131/81; PULSE 69
[2024-10-13 12:16] VITALS: BP 117/84; PULSE 75
[2024-10-13 12:17] VITALS: BP 117/84; PULSE 75; RESP 17; O2SAT 98
== END 2024-10-13 12:17 ==
LOC: OPOB 11:40 → OBGYN 11:41
PROVIDERS: PCP Family Medicine Adult Medicine; Visit Provider Obstetrics & Gynecology
DX: O16.9 Unspecified maternal hypertension, unspecified trimester (principal); Z3A.00 Weeks of gestation of pregnancy not specified
CPT/HCPCS: 59025; 99211

== ENCOUNTER 2024-10-16 11:30 | Outpatient (CLI) | payer OTHER, SELFPAY ==
[2024-10-16 11:43] VITALS: BP 136/88; PULSE 75
[2024-10-16 12:01] VITALS: BP 126/86; PULSE 76
[2024-10-16 12:16] VITALS: BP 128/87; PULSE 62
== END 2024-10-16 12:21 ==
LOC: OPOB 11:33 → OBGYN 11:34
PROVIDERS: PCP Family Medicine Adult Medicine; Visit Provider Obstetrics & Gynecology
DX: O16.9 Unspecified maternal hypertension, unspecified trimester (principal); Z3A.00 Weeks of gestation of pregnancy not specified
CPT/HCPCS: 59025

== ENCOUNTER 2024-10-19 06:58 | Inpatient (IN) | payer OTHER, SELFPAY ==
[2024-10-19] VITALS (44 sets, daily range): BP systolic 117–161; BP diastolic 67–102; PULSE 51–93; TEMP 36.4–37.1; BMI 42.0
[2024-10-19] MEDS: miSOPROStol 100 mcg tablet 25 MCG VAGINAL (08:24)
--- NOTE | 2024-10-19 08:35 | PM.OBGYHP ---
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 SA2 EDC October 30, 2024 At 38 w 3 d complicated by gestational hypertension BPs have been elevated consistently over the past week Even on Procardia 30 mg XL one po daily and labetolol 100 mg po bid Now admitted for induction of labor No c/o + movements No headaches, blurry vision Present Details : 3 Para: 0 Labs Rubella: Immune RPR: Negative GBS: Negative Medications/Allergies Home Medications ?Medication ?Instructions ?Recorded ?Confirmed ?Last Taken ?Type levothyroxine 50 mcg tablet 50 mcg PO DAILY #90 tabs 08/11/24 12/01/24 10/19/24 06:55 Rx hydrocodone 5 mg-acetaminophen 325 1 tab PO Q4H PRN pain #10 tabs 11/22/24 12/01/24 Unknown Rx mg tablet ondansetron 4 mg disintegrating 4 mg PO .q6-8h PRN nausea and 11/22/24 12/01/24 Unknown Rx tablet vomiting #10 tabs ciprofloxacin HCl 500 mg tablet 500 mg PO BID 5 days #10 tabs 11/24/24 12/01/24 Unknown Rx meloxicam 7.5 mg tablet 7.5 mg PO DAILY 7 days #7 tabs 11/24/24 12/01/24 Unknown Rx metronidazole 500 mg tablet 500 mg PO Q8H 7 days #21 tabs 11/24/24 12/01/24 Unknown Rx pantoprazole 40 mg tablet,delayed 40 mg PO DAILY 30 days #30 tabs 11/24/24 12/01/24 Unknown Rx release (Protonix) etonogestrel 0.12 mg-ethinyl 1 vag ring vaginal ONCE #3 ea 12/01/24 12/01/24 Unknown Rx estradiol 0.015 mg/24 hr vaginal ring (NuvaRing) Allergies Allergy/AdvReac Type Severity Reaction Status Date / Time adalimumab (From Humira) Allergy Intermediate ALGY-Hives Verified 12/03/24 16:24 clindamycin Allergy Intermediate ALGY-Rash Verified 12/03/24 16:24 sulfamethoxazole (From Allergy Intermediate ALGY-Difficulty Verified 12/03/24 16:24 Bactrim) Breathing trimethoprim (From Bactrim) Allergy Intermediate ALGY-Difficulty Verified 12/03/24 16:24 Breathing amoxicillin Allergy Mild ALGY-Rash Verified 12/03/24 16:24 tree nut Allergy ALGY-Anaphy Verified 12/03/24 16:24 laxis metoclopramide (From Reglan) AdvReac Mild ADR-Muscle Verified 12/03/24 16:24 Pain 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 PFSH: Medical History Vaginal delivery Asthma with allergic rhinitis Tinea corporis Hypothyroidism PCOS (polycystic ovarian syndrome) Irregular periods High risk medication use PSVT (paroxysmal supraventricular tachycardia) BBB (bundle branch block) Right Kidney stone on left side Surgical History S/P ACL repair History of appendectomy Family History Brother Rheumatoid arthritis Mother Gallbladder disease Sister Gallbladder disease Other CAD (coronary artery disease) Diabetes Family history of premature coronary artery disease Hyperlipidemia Hypertension Denies family history of Colon cancer Ovarian cancer Heart disease Breast cancer Uterine cancer Thyroid disease Stroke Social History Smoking and tobacco/nicotine status: never used tobacco/nicotine History History History 3 Term 1 0 Miscarriages/Ectopic 2 Living Children 1 Vitals/I&O/Wt Last Vital Signs Temp 98.0 F 10/21/24 19:40 Pulse 81 10/21/24 19:40 Resp 16 10/21/24 19:40 BP 142/88 10/21/24 19:40 Pulse Ox 98 10/21/24 19:40 O2 Del Method Room Air 10/21/24 19:38 Physical Exam Narrative: Weight 237 lbs; 5?3? BP 133 / 93; 138 / 95 General comfortable, awake, alert Lungs: clear Cor: RRR Abd: nontender FH 37 cm, cephalic Cervix: 1 / 50 / -3 / posterior Ext: no edema External monitor: heart tracing good variability, + accelerations Urinary Catheter Management: Foster Latex Free: Cath Placed During This Visit: yes, but has since been removed by the nurse Reason for Continuing Indwelling Catheter: Decision to DC Catheter Urinary Catheter Date of Insertion: 10/20/24 Urinary Catheter Time of Insertion: 07:55 Date Urinary Catheter Removed: 10/20/24 Time Urinary Catheter Discontinued: 17:48 Data 10/21/24 05:40 Results Labs OB ([facility]): Obstetrics US 10/01/24 Blood Type A Positive 10/19/24 Antibody Screen Negative 10/19/24 Hct 37.9 % (36-47) 11/21/24 Hgb 11.70 g/dL (11.27-16.99) 11/21/24 Rho(D) Type Rh positive 10/19/24 Plt Count 381 10^3/cmm (157-399) 11/21/24 Hep Bs Antigen Non-reactive (Nonreactive) 04/01/24 Hepatitis C Antibody Non-reactive (Nonreactive) 04/01/24 Rubella IgG Antibody 85.1 IU/mL (0.0-10.0) H 04/01/24 RPR Nonreactive (Nonreactive) 04/01/24 HIV 1&2 Ab & HIV 1 Ag Non-reactive (Non-Reactiv) 04/01/24 TSH 2.67 uIU/mL (0.27-4.20) 07/08/24 Free T4 1.31 ng/dL (0.82-1.77) 04/14/24 C.trachomatis RNA (TMA) Not detected (NOT DETECTED) 04/01/24 N.gonorrhoeae RNA (TMA) Not detected (NOT DETECTED) 04/01/24 T. vaginalis Amp RNA Not detected (NOT DETECTED) 04/01/24 Chlamydia/GC Comment See note 04/01/24 Cystic Fibrosis Screen Negative 04/01/24 Glucose 1 Hr 50 gm 160 mg/dL (85-140) H 08/06/24 Gest Glucose Tolerance mg/dL 08/13/24 Hemoglobin A1c 4.9 % (4.0-6.0) 04/18/23 Uric Acid 4.1 mg/dL (2.4-5.7) 10/04/24 FSH 5.2 mIU/mL 04/19/23 Ser , Semi-Qnt 202.00 mIU/mL 02/21/24 HCG, Qual Negative (Negative) 11/21/24 Urine Opiates Screen Negative ng/mL (Negative) 04/01/24 Ur Barbiturates Screen Negative ng/mL (Negative) 04/01/24 Ur Phencyclidine Scrn Negative ng/mL (Negative) 04/01/24 Ur Amphetamines Screen Negative ng/mL (Negative) 04/01/24 U Benzodiazepines Scrn Negative ng/mL (Negative) 04/01/24 Urine Cocaine Screen Negative ng/mL (Negative) 04/01/24 U Marijuana (THC) Screen Negative ng/mL (Negative) 04/01/24 Micro Urine Specimen 10/04/24 Prolactin 14.02 ng/mL (4.8-23.3) 10/16/23 A&P Assessment and plan (1) Encounter for induction of labor: 38 w 3 d Gestational hypertension Admit for induction of labor PDMP PDMP Reviewed: Last Reviewed 10/21/24 15:08 EST by Kaushik Rust MD Attestations Medical Necessity Statement*: patient at 38 w 3 d, with gestational hypertension, admitted for induction of labor Coding Level of Care Code Acute Code for Chg Fwd Diagnoses Encounter for induction of labor Z34.90 Time Spent (min) 60
[2024-10-19 09:06] LABS: Basophils % 0.3 %; Eosinophils # 0.1 10^3/uL (0.0-0.8); Eosinophils % 1.1 %; Hematocrit 31.1 % (36-47); Lymphocytes # 2.5 10^3/uL (0.8-4.8); Lymphocytes % 25.7 %; Mean Corpuscular HGB Conc 31.8 g/dL (30-55); Mean Corpuscular Hemoglobin 25.6 pg (27-33); Mean Corpuscular Volume 80.6 fl (85-98); Mean Platelet Volume 11.3 fL (7.4-10.4); Monocytes # 0.6 10^3/uL (0.2-0.9); Monocytes % 5.8 %; Neutrophils # 6.56 10^3/uL (1.8-7.7); Neutrophils % 66.6 %; Nucleated Red Blood Cells % 0 %; Platelet Count 372 10^3/cmm (157-399); Red Blood Count 3.86 10^6/uL (3.85-5.65); White Blood Count 9.85 10^3/uL (3.29-11.43)
[2024-10-19] MEDS: acetaminophen 325 mg Tablet 650 MG PO (10:20)
[2024-10-19] MEDS: hyDROXYzine 25 mg Capsule 50 MG PO (10:22)
[2024-10-19] MEDS: oxytocin 30 UNIT/500 ML BAG IV (15:00)
[2024-10-19] MEDS: dextrose 5%-lactated ringers 1,000 ML 125 ML IV (15:00)
[2024-10-19] MEDS: calcium carbonate 500 mg Chew Tablet 1000 MG PO (20:48)
[2024-10-19] MEDS: dextrose 5%-lactated ringers 1,000 ML 115 ML IV (23:33)
[2024-10-20] VITALS (113 sets, daily range): BP systolic 118–176; BP diastolic 61–106; PULSE 49–129; RESP 15–19; TEMP 36.3–36.8; O2SAT 89–99
[2024-10-20] MEDS: lactated ringers 1,000 ML 999 ML IV ×2 (05:50→14:29)
[2024-10-20] MEDS: lactated ringers 1,000 ML 125 ML IV (06:52)
[2024-10-20] MEDS: ROPivacaine syringe 100 MG/50 ML SYRINGE 10 MG EPIDURAL ×2 (07:04→11:30)
--- NOTE | 2024-10-20 07:23 | ANES.PREANE2 ---
Pre-Anesthetic Assessment Height/Weight: Height 1.6 m Weight 107.728 kg Temp Pulse BP Pulse Ox O2 Del Method 98.7 F 63 131/89 98 Room Air 10/19/24 20:30 10/20/24 07:18 10/20/24 07:15 10/20/24 07:18 10/19/24 11:29 Epidural Familial anesthetic complications: None Was Beta Karina taken within 24 hours: N/A Was Clonidine taken within 24 hours: N/A Last intake: > 8hrs Social No alcohol and No tobacco Exam alert, oriented x 3, clear to auscultation bilaterally and regular rate & rhythm Airway Mallampati: Class IV Dentition: full CV/HEM Hypertension PVST Metabolic Morbid Obesity and Thyroid Disease [facility] [place] Rheumatoid Arthritis Anesthetic Plan ASA status: 3 Anesthesia: Regional (specify below) Risk of > 500 ml blood loss (7ml/kg in children): Yes, adequate IV access and fluids planned Medications/Allergies Home Medications Medication Instructions Recorded Confirmed Last Taken Type levalbuterol tartrate 45 7 inh inhalation Q6H PRN shortness 01/21/24 10/19/24 Unknown Rx mcg/actuation aerosol inhaler of breath or wheezing #15 grams PNV 153-FA 400 mcg-om3 35 mg-dha 1 tab PO DAILY 04/01/24 10/19/24 10/18/24 21:00 History 25 mg-epa 5 mg-fish oil chew tablet ( Gummies) levothyroxine 50 mcg tablet 50 mcg PO DAILY #90 tabs 08/11/24 10/19/24 10/19/24 06:55 Rx labetalol 100 mg tablet 100 mg PO BID #60 tabs 10/05/24 10/19/24 10/19/24 06:55 Rx Procardia XL 30 mg PO DAILY 10/09/24 10/19/24 10/18/24 21:00 History nifedipine 30 mg tablet,extended 30 mg PO DAILY #30 tabs 10/10/24 10/19/24 10/18/24 21:00 Rx release 24 hr (Procardia XL) Allergies Allergy/AdvReac Type Severity Reaction Status Date / Time almond Allergy Severe ALGY-Anaphy Verified 10/12/24 10:41 laxis adalimumab [From Humira] Allergy Intermediate ALGY-Hives Verified 10/12/24 10:41 clindamycin Allergy Intermediate ALGY-Rash Verified 10/12/24 10:41 sulfamethoxazole Allergy Intermediate ALGY-Difficulty Verified 10/12/24 10:41 [From Bactrim] Breathing trimethoprim [From Bactrim] Allergy Intermediate ALGY-Difficulty Verified 10/12/24 10:41 Breathing amoxicillin Allergy Mild ALGY-Rash Verified 10/12/24 10:41 nut - unspecified Allergy ALGY-Anaphy Verified 10/12/24 10:41 laxis tree nut Allergy ALGY-Anaphy Verified 10/19/24 11:46 laxis metoclopramide [From Reglan] AdvReac Mild ADR-Muscle Verified 10/12/24 10:41 Pain Current Medications Generic Name Dose Route Start Last Admin Trade Name Freq PRN Reason Stop Dose Admin Acetaminophen 650 mg 10/19/24 07:33 10/19/24 10:20 Acetaminophen 325 Mg Tablet PO 650 mg Q6H PRN Administration Mild pain or temp > 100.4 Calcium Carbonate 1,000 mg 10/19/24 07:33 10/19/24 20:48 Calcium Carbonate 500 Mg Chew Tablet PO 1,000 mg Q4H PRN Administration Heartburn/Indigestion (Use 1st) Hydroxyzine Pamoate 50 mg 10/19/24 07:33 10/19/24 10:22 Hydroxyzine 25 Mg Capsule PO 50 mg QID PRN Administration sleep, agitation or itching Dextrose/Lactated Ringer's 1,000 mls @ 125 mls/hr 10/19/24 07:45 10/19/24 23:33 Dextrose 5%-Lactated Ringers IV 115 mls/hr .Q8H REMEDIOS Administration Oxytocin 30 unit in 500 mls @ 1 mls/hr 10/19/24 13:45 10/20/24 05:45 Pitocin IV 0 milliunit/min .Q24H REMEDIOS 0 mls/hr Titration Protocol 1 MILLIUNIT/MIN Lactated Ringer's 1,000 mls @ 999 mls/hr 10/20/24 05:31 10/20/24 06:52 Lactated Ringers IV 125 mls/hr .Q1H1M PRN Administration See label comments Ropivacaine 100 mg in 50 mls @ 10 mls/hr 10/20/24 05:45 10/20/24 07:04 Naropin Syringe EPIDURAL 10 mls/hr .Q5H REMEDIOS Administration PFSH Anesthesia Medical History Asthma with allergic rhinitis Tinea corporis Hypothyroidism PCOS (polycystic ovarian syndrome) Irregular periods High risk medication use PSVT (paroxysmal supraventricular tachycardia) BBB (bundle branch block) Right Kidney stone on left side Surgical History S/P ACL repair History of appendectomy Family History Brother Rheumatoid arthritis Other CAD (coronary artery disease) Diabetes Family history of premature coronary artery disease Hyperlipidemia Hypertension Denies family history of Colon cancer Ovarian cancer Heart disease Breast cancer Uterine cancer Thyroid disease Stroke Social History Smoking and tobacco/nicotine status: never used tobacco/nicotine Female Reproductive History : 3 Data Anesthesia 10/19/24 08:10 Short CBC 10/19/24 Range/Units 08:10 WBC 9.85 (3.29-11.43) 10^3/uL Hgb 9.90 L (11.27-16.99) g/dL Hct 31.1 L (36-47) % MCV 80.6 L (85-98) fl Plt Count 372 (157-399) 10^3/cmm Neut % (Auto) 66.6 % Neut # (Auto) 6.56 (1.8-7.7) 10^3/uL Blood Bank 10/19/24 08:10 Blood Type A Positive Rho(D) Type Rh positive Antibody Screen Negative Cardiac Studies: No Data to Display
--- NOTE | 2024-10-20 07:24 | ANES.PROC ---
Anesthesia Procedures Procedure/Date: 10/20/24 Epidural: Time Out Performed: Yes Consents Signed: Procedure Consent Consent: requested by attending/covering physician, from patient, from other, risks and benefits reviewed and patient agrees to proceed Lumbar Level: L2-L3 Epidural position: sitting Epidural procedure: sterile prep of area, 1% lidocaine to numb the area, 18 g needle, negative for paresthesia passed, neg for paresthesia, test dose given, 1.5% xylocaine 1:200k epi (5), 0.2% Ropivacaine bolus ml (5), placed PCEA, no systemic response, sterile dressing applied, L.U.D. no apparent complications and 0.2% Ropiavacaine @ mls/hr (10) Additional Comments: ROWENA at 5.5 cm, threded to 11.5 cm, patient reported decreased pain of contractions from 6/10 to 4/10 and denotes tingling in her R leg
[2024-10-20] MEDS: oxytocin 30 UNIT/500 ML BAG IV (10:10)
[2024-10-20] MEDS: NIFEdipine ER (24 hr) 30 mg Tablet PO (12:29)
[2024-10-20] MEDS: labetalol 200 mg Tablet 100 MG PO ×2 (15:05→20:07)
[2024-10-20] MEDS: ROPivacaine syringe 100 MG/50 ML SYRINGE 11 MG EPIDURAL (16:03)
--- NOTE | 2024-10-20 19:10 | PM.DELIVERY ---
Delivery Note: Date of delivery: October 20, 2024 Pre-delivery diagnoses: 38 weeks hypertension induction of labor Post-delivery diagnoses: 38 weeks hypertension induction of labor vaginal delivery repair of second-degree perineal laceration Procedure: induction of labor vaginal delivery repair of second-degree perineal laceration Op report anesthesia: Epidural Delivering Physician: Kaushik Rust MD Estimated blood loss (mL): 300 Findings: , vigorous female cord gases obtained normal placenta and cord no episiotomy second-degree perineal laceration repaired EBL: 300 cc no complications Pre-Delivery Course: normal labor course Delivery: vaginal Post-Delivery Status: good History History History 3 Term 0 0 Miscarriages/Ectopic 2 Living Children 0 A&P Assessment and plan (1) Vaginal delivery: Coding Level of Care Code Acute Code for Chg Fwd Diagnoses Vaginal delivery O80 Time Spent (min) 60
[2024-10-20] MEDS: docusate sodium 100 mg Capsule PO (21:36)
[2024-10-20] MEDS: ibuprofen 800 mg tablet PO (21:36)
[2024-10-21 00:30] VITALS: BP 128/80; PULSE 81; RESP 16; TEMP 36.6; TEMP 36.7; O2SAT 98
[2024-10-21 02:30] VITALS: BP 132/90; PULSE 92; RESP 15; TEMP 36.8; O2SAT 97
[2024-10-21 04:57] VITALS: BP 131/86; PULSE 72; RESP 15; TEMP 36.8; O2SAT 97
[2024-10-21 05:56] LABS: Hematocrit 27.6 % (36-47); Mean Corpuscular HGB Conc 32.2 g/dL (30-55); Mean Corpuscular Volume 80.7 fl (85-98); Mean Platelet Volume 10.9 fL (7.4-10.4); Platelet Count 327 10^3/cmm (157-399); Red Blood Count 3.42 10^6/uL (3.85-5.65); Red Cell Distribution Width 14.4 % (12.1-15.1); White Blood Count 16.59 10^3/uL (3.29-11.43)
--- NOTE | 2024-10-21 08:00 | ANE.PACU2 ---
Inpatient post-anesthesia follow up: Airway intact: Yes Vital signs: Temperature 98.0 F Pulse Rate 81 Respiratory Rate 16 Blood Pressure 142/88 Pulse Oximetry 98 Oxygen Delivery Me thod Room Air Oxygen Flow Rate Fraction of Inspir ed Oxygen Hydration adequate: Yes Nausea and vomiting: No Pain level: 1 Mental status: Baseline Epidural Start/End: Epidural Start Date: 10/20/24 Epidural Start Time: 06:45 Epidural End Date: 10/20/24 Epidural End Time: 19:08
[2024-10-21] MEDS: PRENATAL VIT NO.130/IRON/FOLIC 1 EACH TABLET PO (08:23)
[2024-10-21] MEDS: NIFEdipine ER (24 hr) 30 mg Tablet PO (08:23)
[2024-10-21] MEDS: docusate sodium 100 mg Capsule PO (08:23)
[2024-10-21] MEDS: ibuprofen 800 mg tablet PO ×2 (08:23→16:12)
[2024-10-21] MEDS: labetalol 200 mg Tablet 100 MG PO (08:24)
--- NOTE | 2024-10-21 14:05 | PM.OBGYDC ---
Discharge Providers [employer] Date of Admission: 10/19/24 06:58 Date of Discharge: 10/21/24 Attending Provider at Admission: Kaushik Rust MD Attending Provider at Discharge: Kaushik Rust MD Consults: none Primary [employer]ING HOUSE WORKER: Kaushik Rust MD Primary Care Provider: Orestes Peterson MD Diagnoses at Discharge Discharge Diagnosis (1) Encounter for induction of labor: Details from hospital stay: 24 y.o. A1 at 38 w 3 d with gestational hypertension BPs have been consistently elevated despite being on procardia and labetolol admitted for induction of labor patient progressed to complete cervical dilatation fetus was reassuring throughout patient had vaginal delivery with repair of second-degree perineal laceration there were no complications patient was discharged to home on the first day Status: Acute Reason for Visit Reason for Visit: IOL Brief History: 24 y.o. A1 at 38 w 3 d with gestational hypertension BPs have been consistently elevated despite being on procardia and labetolol admitted for induction of labor Hospital Course Hospital Course 24 y.o. A1 at 38 w 3 d with gestational hypertension BPs have been consistently elevated despite being on procardia and labetolol admitted for induction of labor patient progressed to complete cervical dilatation fetus was reassuring throughout patient had vaginal delivery with repair of second-degree perineal laceration there were no complications patient was discharged to home on the first day Information Peripartum Data: Delivery Method: Vaginal Laceration description: Perineal - 2nd Degree Episiotomy description: None complications: none Physical Exam Narrative: General comfortable, awake, alert Lungs: clear Cor: RRR Abd: Soft, nondistended, nontender Urinary Catheter Management: Foster Latex Free: Cath Placed During This Visit: yes, but has since been removed by the nurse Reason for Continuing Indwelling Catheter: Decision to DC Catheter Urinary Catheter Date of Insertion: 10/20/24 Urinary Catheter Time of Insertion: 07:55 Date Urinary Catheter Removed: 10/20/24 Time Urinary Catheter Discontinued: 17:48 History History History 3 Term 1 0 Miscarriages/Ectopic 2 Living Children 1 Discharge Data Studies Completed and Pending Laboratory Results WBC 16.59 10^3/uL (3.29-11.43) H 10/21/24 05:40 RBC 3.42 10^6/uL (3.85-5.65) L 10/21/24 05:40 Hgb 8.90 g/dL (11.27-16.99) L 10/21/24 05:40 Hct 27.6 % (36-47) L 10/21/24 05:40 MCV 80.7 fl (85-98) L 10/21/24 05:40 MCH 26.0 pg (27-33) L 10/21/24 05:40 MCHC 32.2 g/dL (30-55) 10/21/24 05:40 RDW 14.4 % (12.1-15.1) 10/21/24 05:40 Plt Count 327 10^3/cmm (157-399) 10/21/24 05:40 MPV 10.9 fL (7.4-10.4) H 10/21/24 05:40 Neut % (Auto) 66.6 % 10/19/24 08:10 Lymph % (Auto) 25.7 % 10/19/24 08:10 Custer % (Auto) 5.8 % 10/19/24 08:10 Eos % (Auto) 1.1 % 10/19/24 08:10 Baso % (Auto) 0.3 % 10/19/24 08:10 Neut # (Auto) 6.56 10^3/uL (1.8-7.7) 10/19/24 08:10 Lymph # (Auto) 2.5 10^3/uL (0.8-4.8) 10/19/24 08:10 [place]uster # (Auto) 0.6 10^3/uL (0.2-0.9) 10/19/24 08:10 Eos # (Auto) 0.1 10^3/uL (0.0-0.8) 10/19/24 08:10 Baso # (Auto) 0.0 10^3/uL (0.0-0.1) 10/19/24 08:10 Nucleated RBC % (auto) 0 % 10/19/24 08:10 Nucleated RBCs # 0.0 /100WBC 10/19/24 08:10 Blood Type A Positive 10/19/24 08:10 Rho(D) Type Rh positive 10/19/24 08:10 Antibody Screen Negative 10/19/24 08:10 Procedures Performed induction of labor vaginal delivery repair of second-degree perineal laceration Vitals Last Vital Signs Temp 98.0 F 10/21/24 19:40 Pulse 81 10/21/24 19:40 Resp 16 10/21/24 19:40 BP 142/88 10/21/24 19:40 Pulse Ox 98 10/21/24 19:40 O2 Del Method Room Air 10/21/24 19:38 Results Labs OB ([facility]): Obstetrics US 10/01/24 Blood Type A Positive 10/19/24 Antibody Screen Negative 10/19/24 Hct 37.9 % (36-47) 11/21/24 Hgb 11.70 g/dL (11.27-16.99) 11/21/24 Rho(D) Type Rh positive 10/19/24 Plt Count 381 10^3/cmm (157-399) 11/21/24 Hep Bs Antigen Non-reactive (Nonreactive) 04/01/24 Hepatitis C Antibody Non-reactive (Nonreactive) 04/01/24 Rubella IgG Antibody 85.1 IU/mL (0.0-10.0) H 04/01/24 RPR Nonreactive (Nonreactive) 04/01/24 HIV 1&2 Ab & HIV 1 Ag Non-reactive (Non-Reactiv) 04/01/24 TSH 2.67 uIU/mL (0.27-4.20) 07/08/24 Free T4 1.31 ng/dL (0.82-1.77) 04/14/24 C.trachomatis RNA (TMA) Not detected (NOT DETECTED) 04/01/24 N.gonorrhoeae RNA (TMA) Not detected (NOT DETECTED) 04/01/24 T. vaginalis Amp RNA Not detected (NOT DETECTED) 04/01/24 Chlamydia/GC Comment See note 04/01/24 Cystic Fibrosis Screen Negative 04/01/24 Glucose 1 Hr 50 gm 160 mg/dL (85-140) H 08/06/24 Gest Glucose Tolerance mg/dL 08/13/24 Hemoglobin A1c 4.9 % (4.0-6.0) 04/18/23 Uric Acid 4.1 mg/dL (2.4-5.7) 10/04/24 FSH 5.2 mIU/mL 04/19/23 Ser , Semi-Qnt 202.00 mIU/mL 02/21/24 HCG, Qual Negative (Negative) 11/21/24 Urine Opiates Screen Negative ng/mL (Negative) 04/01/24 Ur Barbiturates Screen Negative ng/mL (Negative) 04/01/24 Ur Phencyclidine Scrn Negative ng/mL (Negative) 04/01/24 Ur Amphetamines Screen Negative ng/mL (Negative) 04/01/24 U Benzodiazepines Scrn Negative ng/mL (Negative) 04/01/24 Urine Cocaine Screen Negative ng/mL (Negative) 04/01/24 U Marijuana (THC) Screen Negative ng/mL (Negative) 04/01/24 Micro Urine Specimen 10/04/24 Prolactin 14.02 ng/mL (4.8-23.3) 10/16/23 Discharge Plan Discharge Patient Disposition: Home Condition: Stable Prescriptions: Continued levothyroxine 50 mcg tablet 50 mcg PO DAILY Qty: 90 0RF Rx Instructions: Take 1 tablet daily Discontinued labetalol 100 mg tablet 100 mg PO BID Qty: 60 1RF nifedipine [Procardia XL] 30 mg tablet extended release 24hr 30 mg PO DAILY Qty: 30 0RF No Action etonogestrel-ethinyl estradiol [NuvaRing] 0.12-0.015 mg/24 hr ring 1 vag ring vaginal ONCE Qty: 3 3RF Rx Instructions: insert intravaginally every 21 days; please allow for early refills for continuous cycling pantoprazole [Protonix] 40 mg tablet,delayed release (DR/EC) 40 mg PO DAILY 30 Days Qty: 30 0RF ciprofloxacin HCl 500 mg tablet 500 mg PO BID 5 Days Qty: 10 0RF hydrocodone-acetaminophen 5-325 mg tablet 1 tab PO Q4H PRN (Reason: pain) Qty: 10 0RF ondansetron 4 mg tablet,disintegrating 4 mg PO .q6-8h PRN (Reason: nausea and vomiting) Qty: 10 0RF Discharge Orders: Discharge Order (Routine); Ordered 10/21/24 Ordered By: Kaushik Rust Referrals: Freda Ortiz NP [Nurse Practitioner] - 12/01/24 1:15 pm Discharge Diet: Usual diet Discharge Activity: Increase activity as tolerated Patient Instructions: Depression (DC), Opioid Safety (DC), Preeclampsia and Eclampsia After Delivery (GEN), Hemorrhage (DC), OB Discharge Report, OB Food/Drug Interaction Guide, Opioid Safety, OB Home Care, OB Vaginal Deliveries - [facility], Abnormal Bleeding Discharge Attestations [employer] Time Spent in Discharge Care*: less than 30 min Coding Level of Care Code Acute Code for Chg Fwd Diagnoses Encounter for induction of labor Z34.90
[2024-10-21 16:18] VITALS: BP 153/90; PULSE 79; RESP 16; TEMP 36.8; O2SAT 97
[2024-10-21 19:38] VITALS: BP 142/88; PULSE 81; RESP 16; TEMP 36.7; O2SAT 98
[2024-10-21 19:40] VITALS: BP 142/88; PULSE 81; RESP 16; TEMP 36.7; O2SAT 98
== END 2024-10-21 19:40 | disposition home or self-care (01) | DRG 807 ==
LOC: OPOB 06:58 → OBGYN 06:58
PROVIDERS: Admitting Provider Obstetrics & Gynecology; PCP Family Medicine Adult Medicine; Visit Provider Obstetrics & Gynecology
DX: O13.4 Gestational [pregnancy-induced] hypertension without significant proteinuria, complicating childbirth (principal); Z37.0 Single live birth; O99.284 Endocrine, nutritional and metabolic diseases complicating childbirth; E03.9 Hypothyroidism, unspecified; E28.2 Polycystic ovarian syndrome; O99.42 Diseases of the circulatory system complicating childbirth; O99.214 Obesity complicating childbirth; E66.01 Morbid (severe) obesity due to excess calories; O70.1 Second degree perineal laceration during delivery; Z3A.38 38 weeks gestation of pregnancy; O75.89 Other specified complications of labor and delivery; I45.10 Unspecified right bundle-branch block; M06.9 Rheumatoid arthritis, unspecified; J45.909 Unspecified asthma, uncomplicated
CPT/HCPCS: 36415; 51702; 59025; 59409; 85025; 85027; 86850; 86900; J2590; J2795; J7120; J7121

== ENCOUNTER 2024-11-21 18:21 | Emergency (ER) | payer OTHER, SELFPAY ==
[2024-11-21 18:43] VITALS: BP 140/97; PULSE 59; RESP 20; TEMP 36.6; O2SAT 99; BMI 37.3
[2024-11-21 19:56] LABS: Basophils # 0.1 10^3/uL (0.0-0.1); Basophils % 0.4 %; Eosinophils # 0.3 10^3/uL (0.0-0.8); Eosinophils % 2.2 %; Hematocrit 37.9 % (36-47); Lymphocytes # 3.4 10^3/uL (0.8-4.8); Lymphocytes % 29.8 %; Mean Corpuscular HGB Conc 30.9 g/dL (30-55); Mean Corpuscular Hemoglobin 25.3 pg (27-33); Mean Corpuscular Volume 81.9 fl (85-98); Mean Platelet Volume 9.3 fL (7.4-10.4); Monocytes # 0.8 10^3/uL (0.2-0.9); Monocytes % 6.8 %; Neutrophils # 6.83 10^3/uL (1.8-7.7); Neutrophils % 60.5 %; Nucleated Red Blood Cells % 0 %; Platelet Count 381 10^3/cmm (157-399); Red Blood Count 4.63 10^6/uL (3.85-5.65); Red Cell Distribution Width 14.9 % (12.1-15.1)
--- NOTE | 2024-11-21 20:14 | USR_ITS ---
PROCEDURE INFORMATION: Exam: US Abdomen, Limited; Right Upper Quadrant Exam date and time: 11/21/2024 9:54 PM Age: 24 years old Clinical indication: Abdominal pain; Localized; Right upper quadrant (ruq); Additional info: Ruq pain/tenderness TECHNIQUE: Imaging protocol: Real time ultrasound of the abdomen with image documentation. Limited exam focused on the right upper quadrant. COMPARISON: [place] [id number] 10/01/2024 12:30 PM FINDINGS: Liver: Enlarged echogenic liver. Gallbladder: Gallbladder wall measures up to 8 mm. Cholelithiasis. Per technologist positive sonographic Oneal's sign. No significant pericholecystic fluid. Biliary ducts: Common bile duct measures up to 4 mm. Pancreas: Visualized pancreas is unremarkable. Right kidney: Right kidney measures 10.6 x 3.9 x 4.4 cm. Aorta: Visualized portion of the aorta is pain and measures up to 1.3 cm. US/US gall bladder [id number] IMPRESSION: 1. Cholelithiasis with mural gallbladder wall thickening measuring up to 8 mm. Constellation of findings concerning for acute cholecystitis in appropriate clinical setting. 2. Hepatomegaly with hepatic steatosis.
[2024-11-21 20:15] LABS: Alanine Aminotransferase 29 U/L (0-33); Albumin Level 4.1 g/dL (3.5-5.2); Alkaline Phosphatase 153 U/L (35-105); Anion Gap 15.2 (5-19); Aspartate Amino Transferase 29 U/L (0-32); Blood Urea Nitrogen 15 mg/dL (6-20); Calcium 9.2 mg/dL (8.5-10.5); Carbon Dioxide 23 mmol/L (22-29); Chloride 105 mmol/L (98-107); Creatinine Clr Calc Pharmacy 94.6589; Globulin 3.1 g/dL (1.3-4.6); Glomerular Filtration Rate 67.6 mL/min (90-130); Glucose 95 mg/dL (65-115); Lipase 74 U/L (13-60); Osmolality Calculated 289 mOsm/kg (285-295); Potassium 4.2 mmol/L (3.5-5.1); Sodium 139 mmol/L (136-145); Total Bilirubin 0.4 mg/dL (0.15-1.2); Total Protein 7.2 g/dL (6.6-8.7)
[2024-11-21] MEDS: sodium chloride 0.9% 1,000 ML 999 ML IV (20:46)
[2024-11-21] MEDS: ondansetron 2 mg/ML SDV 2 mL 4 MG IVP (20:47)
[2024-11-21] MEDS: ketorolac 30 mg/mL INJ 15 MG IVP (20:49)
[2024-11-21 20:51] VITALS: BP 113/73; PULSE 54; RESP 16; O2SAT 96
--- NOTE | 2024-11-21 20:52 | ED_ITS ---
Documented by User: IVET Matos 11/22/24 00:44 HPI - Abdominal Pain 2 General: Chief Complaint: Abdominal Pain Stated Complaint: right side upper abd pain n/v Time Seen by Provider: 11/21/24 19:42 Source: patient Mode of arrival: ambulatory Limitations: no limitations History of Present Illness: Patient is a 24-year-old female that presents to the emergency department with pain in the right upper quadrant that radiates into her back and in the epigastric region of her stomach. She states this began about a month ago after she had her baby. She states it is worse when she eats anything but has been trying to avoid greasy and fatty foods. She states she still has her gallbladder and her mom and sisters have already had their's removed. She denies any history of pancreatitis. She denies any vomiting but does report nausea. She has been taking [id number] Benadryl to help with the nausea and some of her leftover oxycodone to help with the pain. She states it has been helping somewhat. She states this attack began earlier today and it has not eased up. She presents to the emergency department for further evaluation and treatment. Associated Symptoms: Reports nausea; Denies chills, fever(s), hematemesis and vomiting Related Data Home Medications ?Medication ?Instructions ?Recorded ?Confirmed PNV 153-FA 400 mcg-om3 35 mg-dha 1 tab PO DAILY 11/06/24 25 mg-epa 5 mg-fish oil chew tablet ( Gummies) Procardia XL 30 mg PO DAILY 10/09/2410/24 Previous Rx's ?Medication ?Instructions ?Recorded levalbuterol tartrate 45 7 inh inhalation Q6H PRN antonio lim 01/21/24 mcg/actuation aerosol inhaler of breath or wheezing #1 5 grams levothyroxine 50 mcg tablet 50 mcg PO DAILY #90 tabs 1 10/11/23 bupropion HCl 150 mg tablet,12 hr 150 mg PO DAILY #30 tabs 10/28/24 sustained-release (Wellbutrin SR) metronidazole 500 mg tablet 500 mg PO BID #14 tabs 02/14 mometasone 0.1 % topical cream 1 applic topical DAILY #45 grams 10/28/24 lidocaine 4 % topical patch 1 patch topical TID PRN ivet in #10 ea 11/06/24 ciprofloxacin HCl 500 mg tablet 500 mg PO BID #10 tabs 11/22/24 hydrocodone 5 mg-acetaminophen 325 1 tab PO Q4H PRN pa in #10 tabs 11/22/24 mg tablet ondansetron 4 mg disintegrating 4 mg PO .q6-8h PRN robert sea and 11/22/24 tablet vomiting #10 tabs Allergies Allergy/AdvReac Type Severity Reaction Status Date / Time almond Allergy Severe ALGY-Anaphy Verified 11/21/24 18:49 laxis adalimumab (From Humira) Allergy Intermediate ALGY-Hives Verified 11/21/24 18:49 clindamycin Allergy Intermediate ALGY-Rash Verified 11/21/24 18:49 sulfamethoxazole (From Allergy Intermediate ALGY-Difficulty Verified 11/21/24 18:49 Bactrim) Breathing trimethoprim (From Bactrim) Allergy Intermediate ALGY-Difficulty Verified 11/21/24 18:49 Breathing amoxicillin Allergy Mild ALGY-Rash Verified 11/21/24 18:49 nut - unspecified Allergy ALGY-Anaphy Verified 11/21/24 18:49 laxis tree nut Allergy ALGY-Anaphy Verified 11/21/24 18:49 laxis metoclopramide (From Reglan) AdvReac Mild ADR-Muscle Verified 11/21/24 18:49 Pain Review of Systems 2 Const: Denies: fever(s) or chills Eyes: Denies: eye discharge or eye redness ENMT: Denies: throat pain, dental pain or nasal congestion Card: Denies: chest pain Resp: Denies: dyspnea, productive cough, non-productive cough or wheezing GI: Reports: abdominal pain (Right upper quadrant) and nausea; Denies: vomiting or hematemesis : Denies: flank pain Musc: Reports: back pain (She states pain radiates from her right upper quadrant to her mid back) Skin/Breast: Denies: rash, pruritus or erythema Neuro: Denies: headache(s), numbness in extremities or weakness in extremities Psych: Denies: anxiety or depression Endo: Denies: polyuria or polydipsia Juan/Lymph: Denies: petechiae All/Imm: Denies: throat swelling or tongue swelling PFSH ED 2 PFSH: Medical History Vaginal delivery Asthma with allergic rhinitis Tinea corporis Hypothyroidism PCOS (polycystic ovarian syndrome) Irregular periods High risk medication use PSVT (paroxysmal supraventricular tachycardia) BBB (bundle branch block) Right Kidney stone on left side Surgical History S/P ACL repair History of appendectomy Family History (Updated 11/21/24 @ 20:57 by IVET Matos) Brother Rheumatoid arthritis Mother Gallbladder disease Sister Gallbladder disease Other CAD (coronary artery disease) Diabetes Family history of premature coronary artery disease Hyperlipidemia Hypertension Denies family history of Colon cancer Ovarian cancer Heart disease Breast cancer Uterine cancer Thyroid disease Stroke Social History Smoking and tobacco/nicotine status: never used tobacco/nicotine Physical Exam 2 Const: COMMON NORMALS: no acute distress, patient oriented x3 and alert G ENERAL APPEARANCE: cooperative ORIENTATION/CONSCIOUSNESS: Yes awake HENMT: COMMON NORMALS: normocephalic, atraumatic and Normal external nose present HEAD & SCALP: normocephalic and atraumatic FACE & SINUS: normal facial exam NOSE: Normal external nose present MOUTH: moist mucous membranes abnormal (Mildly dry) THROAT: posterior oropharynx normal Eye: COMMON NORMALS: conjunctivae normal and no scleral icterus C ONJUNCTIVA: Yes conjunctivae normal Neck/C-Spine: COMMON NORMALS: full ROM, no lymphadenopathy and supple Resp: COMMON NORMALS: normal respiratory effort, No retractions and clear to auscultation bilaterally AUSCULTATION: clear to auscultation bilaterally, no crackles, no rales, no rhonchi and no wheezes Cardio: COMMON NORMALS: regular rhythm RATE: bradycardic RHYTHM: regular rhythm GI: COMMON NORMALS: Soft to palpation PALPATION: Yes Soft to palpation and Yes Tenderness to palpation present (GI) Details: RUQ and other (Mild epigastric tenderness and RLQ tenderness with no guarding or rebound) : COMMON NORMALS: Yes no CVA tenderness BLADDER/KIDNEY EXAM: Yes no CVA tenderness Back/Pelvis: COMMON NORMALS: no CVA tenderness and no thoracic nor lumbar tenderness Extremity: COMMON NORMALS: normal to inspection, full ROM, no calf tenderness and no pedal edema Neuro: COMMON NORMALS: patient oriented x3 and moves all extremities S ENSORIUM/ORIENTATION: Yes alert Psych: COMMON NORMALS: mental status grossly normal and speech normal A TTITUDE: Yes calm SPEECH: Yes normal speech Skin: COMMON NORMALS: no rashes or lesions noted, no wounds, no jaundice and no petechiae GENERAL SKIN EXAM: no rashes or lesions noted Course 2 ED course: I discussed the case with Dr. Espino who agrees with the assessment and plan. Consultations: Consultation #1: I discussed the case with Dr. Lo. I discussed the lab and ultrasound findings with him. He requested that I put the patient on oral antibiotics and he will see the patient in clinic this coming week. Time: 12:17 Vital Signs: Vital signs: Vital Signs Temperature 97.9 F 11/21/24 18:43 Pulse Rate 51 L 11/22/24 00:52 Respiratory Rate 14 11/22/24 00:52 Blood Pressure 115/59 11/22/24 00:52 Pulse Oximetry 97 11/22/24 00:52 Oxygen Delivery Me thod Room Air 11/21/24 22:29 MDM - Abdominal Pain Medical Decision Making Patient was advised of the exam, lab and imaging findings. Thankfully, the patient has been afebrile and does not have an elevated white blood cell count. Unfortunately she does have abdominal tenderness with a positive Oneal sign. She does have thickening of the gallbladder wall and cholelithiasis. There is no pericholecystic fluid. The patient has an allergy to amoxicillin but states she has taken Cipro in the past without any difficulty. I did discuss the case with Dr. Lo, on-call for general surgery. He recommended placing the patient on antibiotics and he will follow-up with her in the clinic for an outpatient evaluation and possible cholecystectomy. The patient was agreeable with this plan. Differential Diagnosis Likely abdominal pain (Acute cholecystitis, cholelithiasis) and pancreatitis Lab Data I reviewed the patient's lab results. 11/21/24 19:49 11/21/24 19:49 Labs/Radiology: Radiology Impressions Gallbladder Ultrasound 11/21/24 20:14 IMPRESSION: 1. Cholelithiasis with mural gallbladder wall thickening measuring up to 8 mm. Constellation of findings concerning for acute cholecystitis in appropriate clinical setting. 2. Hepatomegaly with hepatic steatosis. Laboratory Results WBC 11.30 10^3/uL (3.29-11.43) 11/21/24 19:49 RBC 4.63 10^6/uL (3.85-5.65) 11/21/24 19:49 Hgb 11.70 g/dL (11.27-16.99) 11/21/24 19:49 Hct 37.9 % (36-47) 11/21/24 19:49 MCV 81.9 fl (85-98) L 11/21/24 19:49 MCH 25.3 pg (27-33) L 11/21/24 19:49 MCHC 30.9 g/dL (30-55) 11/21/24 19:49 RDW 14.9 % (12.1-15.1) 11/21/24 19:49 Plt Count 381 10^3/cmm (157-399) 11/21/24 19:49 MPV 9.3 fL (7.4-10.4) 11/21/24 19:49 Neut % (Auto) 60.5 % 11/21/24 19:49 Lymph % (Auto) 29.8 % 11/21/24 19:49 [place] % (Auto) 6.8 % 11/21/24 19:49 Eos % (Auto) 2.2 % 11/21/24 19:49 Baso % (Auto) 0.4 % 11/21/24 19:49 Neut # (Auto) 6.83 10^3/uL (1.8-7.7) 11/21/24 19:49 Lymph # (Auto) 3.4 10^3/uL (0.8-4.8) 11/21/24 19:49 [place] # (Auto) 0.8 10^3/uL (0.2-0.9) 11/21/24 19:49 Eos # (Auto) 0.3 10^3/uL (0.0-0.8) 11/21/24 19:49 Baso # (Auto) 0.1 10^3/uL (0.0-0.1) 11/21/24 19:49 Nucleated RBC % (auto) 0 % 11/21/24 19:49 Nucleated RBCs # 0.0 /100WBC 11/21/24 19:49 Sodium 139 mmol/L (136-145) 11/21/24 19:49 Potassium 4.2 mmol/L (3.5-5.1) 11/21/24 19:49 Chloride 105 mmol/L (98-107) 11/21/24 19:49 Carbon Dioxide 23 mmol/L (22-29) 11/21/24 19:49 Anion Gap 15.2 (5-19) 11/21/24 19:49 BUN 15 mg/dL (6-20) 11/21/24 19:49 Creatinine 1.0 mg/dL (0.5-0.9) H 11/21/24 19:49 GFR Calculation 67.6 mL/min (90-130) L 11/21/24 19:49 Glucose 95 mg/dL (65-115) 11/21/24 19:49 Calculated Osmolality 289 mOsm/kg (285-295) 11/21/24 19:49 Calcium 9.2 mg/dL (8.5-10.5) 11/21/24 19:49 Total Bilirubin 0.4 mg/dL (0.15-1.2) 11/21/24 19:49 AST 29 U/L (0-32) 11/21/24 19:49 ALT 29 U/L (0-33) 11/21/24 19:49 Alkaline Phosphatase 153 U/L (35-105) H 11/21/24 19:49 Total Protein 7.2 g/dL (6.6-8.7) 11/21/24 19:49 Albumin 4.1 g/dL (3.5-5.2) 11/21/24 19:49 Globulin 3.1 g/dL (1.3-4.6) 11/21/24 19:49 Lipase 74 U/L (13-60) H 11/21/24 19:49 HCG, Qual Negative (Negative) 11/21/24 22:59 Urine Color Yellow (Yellow) 11/21/24 22:59 Urine Appearance Clear (CLEAR) 11/21/24 22:59 Urine pH 5.5 (5-7) 11/21/24 22:59 Ur Specific [place] 1.014 (1.005-1.030) 11/21/24 22:59 Urine Protein Negative (Negative) 11/21/24 22:59 Urine Glucose (UA) Negative (Normal) 11/21/24 22:59 Urine Ketones Negative (Negative) 11/21/24 22:59 Urine Blood Negative (Negative) 11/21/24 22:59 Urine Nitrate Negative (Negative) 11/21/24 22:59 Urine Bilirubin Negative (Negative) 11/21/24 22:59 Urine Urobilinogen 0.2 mg/dL (Negative) 11/21/24 22:59 Ur Leukocyte Esterase 1+ (Negative) A 11/21/24 22:59 Urine RBC 0-4 /hpf (0-2) H 11/21/24 22:59 Urine WBC 10-15 /hpf (0-5) H 11/21/24 22:59 Ur Squamous Epith Cells 0-4 /hpf (0-5) H 11/21/24 22:59 Amorphous Sediment Not Reportable 11/21/24 22:59 Urine Bacteria Trace /hpf (NONE) 11/21/24 22:59 All radiology interpretation(s) finalized by discharge Critical Care Time 2 Critical Care Time: Critical Care Time: No Discharge Plan Discharge Patient Disposition: Home Clinical Impression: Right upper quadrant abdominal pain Cholelithiasis Qualifiers: Cholelithiasis location: gallbladder Cholecystitis presence: with cholecystitis Cholecystitis acuity: acute Biliary obstruction: without biliary obstruction Q ualified Code(s): K80.00 - Calculus of gallbladder with acute cholecystitis without obstruction Condition: Stable Prescriptions: New ciprofloxacin HCl 500 mg tablet 500 mg PO BID Qty: 10 0RF hydrocodone-acetaminophen 5-325 mg tablet 1 tab PO Q4H PRN (Reason: pain) Qty: 10 0RF ondansetron 4 mg tablet,disintegrating 4 mg PO .q6-8h PRN (Reason: nausea and vomiting) Qty: 10 0RF Discontinued oxycodone-acetaminophen [Percocet] 5-325 mg tablet 1 tab PO BID PRN (Reason: pain) Qty: 14 0RF No Action bupivacaine (PF) 0.5 % (5 mg/mL) solution 5 mg Infiltration ONCE Qty: 1 0RF lidocaine (PF) 10 mg/mL (1 %) solution 10 mg SUBCUT ONCE Qty: 1 0RF lidocaine 4 % adhesive patch,medicated 1 patch topical TID PRN (Reason: pain) Qty: 10 1RF levalbuterol tartrate 45 mcg/actuation HFA aerosol inhaler 7 inh inhalation Q6H PRN (Reason: shortness of breath or wheezing) Qty: 15 1RF Rx Instructions: She requested, but formulary albuterol is ok Gummies 400 mcg-35 mg- 25 mg-5 mg tablet,chewable 1 tab PO DAILY bupropion HCl [Wellbutrin SR] 150 mg tablet sustained-release 12 hr 150 mg PO DAILY Qty: 30 2RF metronidazole 500 mg tablet 500 mg PO BID Qty: 14 0RF mometasone 0.1 % cream 1 applic topical DAILY Qty: 45 2RF Rx Instructions: apply to affected area 3 x / day levothyroxine 50 mcg tablet 50 mcg PO DAILY Qty: 90 0RF Rx Instructions: Take 1 tablet daily Procardia XL 30 mg PO DAILY Discharge Orders: Discharge ED (Routine); Ordered 11/22/24 Ordered By: Ang Zuñiga Referrals: Vargas Lo MD [Physician] - Orestes Peterson MD [Primary Care Provider] - Discharge Diet: Low Fat Discharge Activity: Resume usual activity Patient Instructions: Cholecystitis (ED), Abdominal Pain (ED), Opioid Safety, Pain Management Activity Restrictions/Additional Instructions: Take the medications as directed. Continue to avoid greasy or fatty foods. Follow-up with Dr. Lo, general surgeon for further evaluation and treatment. Call for an appointment. See the attached information on abdominal pain and cholecystitis. Return to the emergency department with any worsening symptoms such as increased pain, fevers, vomiting or any other worsening symptoms. Print Language: [place] Coding Level of Care Code ED Skip Miner Blasting for Chg Fwd Documented by User: Ramón Espino DO 11/22/24 01:47 HPI - Abdominal Pain 2 General: Chief Complaint: Abdominal Pain Stated Complaint: right side upper abd pain n/v Time Seen by Provider: 11/21/24 19:42 Related Data Home Medications ?Medication ?Instructions ?Recorded ?Confirmed PNV 153-FA 400 mcg-om3 35 mg-dha 1 tab PO DAILY 11/06/24 25 mg-epa 5 mg-fish oil chew tablet ( Gummies) Procardia XL 30 mg PO DAILY 10/09/2410/24 Previous Rx's ?Medication ?Instructions ?Recorded levalbuterol tartrate 45 7 inh inhalation Q6H PRN antonio rtness 01/21/24 mcg/actuation aerosol inhaler of breath or wheezing #1 5 grams levothyroxine 50 mcg tablet 50 mcg PO DAILY #90 tabs 1 10/11/23 bupropion HCl 150 mg tablet,12 hr 150 mg PO DAILY #30 tabs 10/28/24 sustained-release (Wellbutrin SR) metronidazole 500 mg tablet 500 mg PO BID #14 tabs 02/14 mometasone 0.1 % topical cream 1 applic topical DAILY #45 grams 10/28/24 lidocaine 4 % topical patch 1 patch topical TID PRN pa in #10 ea 11/06/24 ciprofloxacin HCl 500 mg tablet 500 mg PO BID #10 tabs 11/22/24 hydrocodone 5 mg-acetaminophen 325 1 tab PO Q4H PRN pa in #10 tabs 11/22/24 mg tablet ondansetron 4 mg disintegrating 4 mg PO .q6-8h PRN robert sea and 11/22/24 tablet vomiting #10 tabs Allergies Allergy/AdvReac Type Severity Reaction Status Date / Time almond Allergy Severe ALGY-Anaphy Verified 11/21/24 18:49 laxis adalimumab (From Humira) Allergy Intermediate ALGY-Hives Verified 11/21/24 18:49 clindamycin Allergy Intermediate ALGY-Rash Verified 11/21/24 18:49 sulfamethoxazole (From Allergy Intermediate ALGY-Difficulty Verified 11/21/24 18:49 Bactrim) Breathing trimethoprim (From Bactrim) Allergy Intermediate ALGY-Difficulty Verified 11/21/24 18:49 Breathing amoxicillin Allergy Mild ALGY-Rash Verified 11/21/24 18:49 nut - unspecified Allergy ALGY-Anaphy Verified 11/21/24 18:49 laxis tree nut Allergy ALGY-Anaphy Verified 11/21/24 18:49 laxis metoclopramide (From Reglan) AdvReac Mild ADR-Muscle Verified 11/21/24 18:49 Pain PFSH ED 2 PFSH: Medical History Vaginal delivery Asthma with allergic rhinitis Tinea corporis Hypothyroidism PCOS (polycystic ovarian syndrome) Irregular periods High risk medication use PSVT (paroxysmal supraventricular tachycardia) BBB (bundle branch block) Right Kidney stone on left side Surgical History S/P ACL repair History of appendectomy Family History (Updated 11/21/24 @ 20:57 by IVET Matos) Brother Rheumatoid arthritis Mother Gallbladder disease Sister Gallbladder disease Other CAD (coronary artery disease) Diabetes Family history of premature coronary artery disease Hyperlipidemia Hypertension Denies family history of Colon cancer Ovarian cancer Heart disease Breast cancer Uterine cancer Thyroid disease Stroke Social History Smoking and tobacco/nicotine status: never used tobacco/nicotine Course 2 Vital Signs: Vital signs: Vital Signs Temperature 97.9 F 11/21/24 18:43 Pulse Rate 51 L 11/22/24 00:52 Respiratory Rate 14 11/22/24 00:52 Blood Pressure 115/59 11/22/24 00:52 Pulse Oximetry 97 11/22/24 00:52 Oxygen Delivery Me thod Room Air 11/21/24 22:29 MDM - Abdominal Pain Medical Decision Making Patient was advised of the exam, lab and imaging findings. Thankfully, the patient has been afebrile and does not have an elevated white blood cell count. Unfortunately she does have abdominal tenderness with a positive Oneal sign. She does have thickening of the gallbladder wall and cholelithiasis. There is no pericholecystic fluid. The patient has an allergy to amoxicillin but states she has taken Cipro in the past without any difficulty. I did discuss the case with Dr. Lo, on-call for general surgery. He recommended placing the patient on antibiotics and he will follow-up with her in the clinic for an outpatient evaluation and possible cholecystectomy. The patient was agreeable with this plan. This patient was originally seen by Mr. Yogesh PA-C.? I agree with his history, evaluation, and treatment. Lab Data 11/21/24 19:49 11/21/24 19:49 Labs/Radiology: Radiology Impressions Gallbladder Ultrasound 11/21/24 20:14 IMPRESSION: 1. Cholelithiasis with mural gallbladder wall thickening measuring up to 8 mm. Constellation of findings concerning for acute cholecystitis in appropriate clinical setting. 2. Hepatomegaly with hepatic steatosis. Laboratory Results WBC 11.30 10^3/uL (3.29-11.43) 11/21/24 19:49 RBC 4.63 10^6/uL (3.85-5.65) 11/21/24 19:49 Hgb 11.70 g/dL (11.27-16.99) 11/21/24 19:49 Hct 37.9 % (36-47) 11/21/24 19:49 MCV 81.9 fl (85-98) L 11/21/24 19:49 MCH 25.3 pg (27-33) L 11/21/24 19:49 MCHC 30.9 g/dL (30-55) 11/21/24 19:49 RDW 14.9 % (12.1-15.1) 11/21/24 19:49 Plt Count 381 10^3/cmm (157-399) 11/21/24 19:49 MPV 9.3 fL (7.4-10.4) 11/21/24 19:49 Neut % (Auto) 60.5 % 11/21/24 19:49 Lymph % (Auto) 29.8 % 11/21/24 19:49 [place] % (Auto) 6.8 % 11/21/24 19:49 Eos % (Auto) 2.2 % 11/21/24 19:49 Baso % (Auto) 0.4 % 11/21/24 19:49 Neut # (Auto) 6.83 10^3/uL (1.8-7.7) 11/21/24 19:49 Lymph # (Auto) 3.4 10^3/uL (0.8-4.8) 11/21/24 19:49 [place] # (Auto) 0.8 10^3/uL (0.2-0.9) 11/21/24 19:49 Eos # (Auto) 0.3 10^3/uL (0.0-0.8) 11/21/24 19:49 Baso # (Auto) 0.1 10^3/uL (0.0-0.1) 11/21/24 19:49 Nucleated RBC % (auto) 0 % 11/21/24 19:49 Nucleated RBCs # 0.0 /100WBC 11/21/24 19:49 Sodium 139 mmol/L (136-145) 11/21/24 19:49 Potassium 4.2 mmol/L (3.5-5.1) 11/21/24 19:49 Chloride 105 mmol/L (98-107) 11/21/24 19:49 Carbon Dioxide 23 mmol/L (22-29) 11/21/24 19:49 Anion Gap 15.2 (5-19) 11/21/24 19:49 BUN 15 mg/dL (6-20) 11/21/24 19:49 Creatinine 1.0 mg/dL (0.5-0.9) H 11/21/24 19:49 GFR Calculation 67.6 mL/min (90-130) L 11/21/24 19:49 Glucose 95 mg/dL (65-115) 11/21/24 19:49 Calculated Osmolality 289 mOsm/kg (285-295) 11/21/24 19:49 Calcium 9.2 mg/dL (8.5-10.5) 11/21/24 19:49 Total Bilirubin 0.4 mg/dL (0.15-1.2) 11/21/24 19:49 AST 29 U/L (0-32) 11/21/24 19:49 ALT 29 U/L (0-33) 11/21/24 19:49 Alkaline Phosphatase 153 U/L (35-105) H 11/21/24 19:49 Total Protein 7.2 g/dL (6.6-8.7) 11/21/24 19:49 Albumin 4.1 g/dL (3.5-5.2) 11/21/24 19:49 Globulin 3.1 g/dL (1.3-4.6) 11/21/24 19:49 Lipase 74 U/L (13-60) H 11/21/24 19:49 HCG, Qual Negative (Negative) 11/21/24 22:59 Urine Color Yellow (Yellow) 11/21/24 22:59 Urine Appearance Clear (CLEAR) 11/21/24 22:59 Urine pH 5.5 (5-7) 11/21/24 22:59 Ur Specific [place] 1.014 (1.005-1.030) 03/01/25 22:59 Urine Protein Negative (Negative) 11/21/24 22:59 Urine Glucose (UA) Negative (Normal) 11/21/24 22:59 Urine Ketones Negative (Negative) 11/21/24 22:59 Urine Blood Negative (Negative) 11/21/24 22:59 Urine Nitrate Negative (Negative) 11/21/24 22:59 Urine Bilirubin Negative (Negative) 11/21/24 22:59 Urine Urobilinogen 0.2 mg/dL (Negative) 11/21/24 22:59 Ur Leukocyte Esterase 1+ (Negative) A 11/21/24 22:59 Urine RBC 0-4 /hpf (0-2) H 11/21/24 22:59 Urine WBC 10-15 /hpf (0-5) H 11/21/24 22:59 Ur Squamous Epith Cells 0-4 /hpf (0-5) H 11/21/24 22:59 Amorphous Sediment Not Reportable 11/21/24 22:59 Urine Bacteria Trace /hpf (NONE) 11/21/24 22:59 Discharge Plan Discharge Patient Disposition: Home Clinical Impression: Right upper quadrant abdominal pain Cholelithiasis Qualifiers: Cholelithiasis location: gallbladder Cholecystitis presence: with cholecystitis Cholecystitis acuity: acute Biliary obstruction: without biliary obstruction Q ualified Code(s): K80.00 - Calculus of gallbladder with acute cholecystitis without obstruction Condition: Stable Prescriptions: New ciprofloxacin HCl 500 mg tablet 500 mg PO BID Qty: 10 0RF hydrocodone-acetaminophen 5-325 mg tablet 1 tab PO Q4H PRN (Reason: pain) Qty: 10 0RF ondansetron 4 mg tablet,disintegrating 4 mg PO .q6-8h PRN (Reason: nausea and vomiting) Qty: 10 0RF Discontinued oxycodone-acetaminophen [Percocet] 5-325 mg tablet 1 tab PO BID PRN (Reason: pain) Qty: 14 0RF No Action bupivacaine (PF) 0.5 % (5 mg/mL) solution 5 mg Infiltration ONCE Qty: 1 0RF lidocaine (PF) 10 mg/mL (1 %) solution 10 mg SUBCUT ONCE Qty: 1 0RF lidocaine 4 % adhesive patch,medicated 1 patch topical TID PRN (Reason: pain) Qty: 10 1RF levalbuterol tartrate 45 mcg/actuation HFA aerosol inhaler 7 inh inhalation Q6H PRN (Reason: shortness of breath or wheezing) Qty: 15 1RF Rx Instructions: She requested, but formulary albuterol is ok Gummies 400 mcg-35 mg- 25 mg-5 mg tablet,chewable 1 tab PO DAILY bupropion HCl [Wellbutrin SR] 150 mg tablet sustained-release 12 hr 150 mg PO DAILY Qty: 30 2RF metronidazole 500 mg tablet 500 mg PO BID Qty: 14 0RF mometasone 0.1 % cream 1 applic topical DAILY Qty: 45 2RF Rx Instructions: apply to affected area 3 x / day levothyroxine 50 mcg tablet 50 mcg PO DAILY Qty: 90 0RF Rx Instructions: Take 1 tablet daily Procardia XL 30 mg PO DAILY Discharge Orders: Discharge ED (Routine); Ordered 11/22/24 Ordered By: Ang Zuñiga Referrals: Vargas Lo MD [Physician] - Orestes Peterson MD [Primary Care Provider] - Discharge Diet: Low Fat Discharge Activity: Resume usual activity Patient Instructions: Cholecystitis (ED), Abdominal Pain (ED), Opioid Safety, Pain Management Activity Restrictions/Additional Instructions: Take the medications as directed. Continue to avoid greasy or fatty foods. Follow-up with Dr. Lo, general surgeon for further evaluation and treatment. Call for an appointment. See the attached information on abdominal pain and cholecystitis. Return to the emergency department with any worsening symptoms such as increased pain, fevers, vomiting or any other worsening symptoms. Print Language: [place] Coding Level of Care Code ED Skip Miner Blasting for Paulina Sawant
[2024-11-21 22:29] VITALS: BP 133/87; PULSE 44; RESP 16; O2SAT 97
[2024-11-21 23:08] LABS: Bilirubin Urine Negative (Negative); Blood Urine Negative (Negative); Glucose Urine UA Negative (Normal); Ketones Urine Negative (Negative); Leukocyte Esterase Urine 1+ (Negative); Nitrate Urine Negative (Negative); Protein Urine Negative (Negative); Specific Gravity, Urine 1.014 (1.005-1.030); Urine Appearance Clear (CLEAR); Urine Color Yellow (Yellow); Urobilinogen Urine 0.2 mg/dL (Negative); pH Urine 5.5 (5-7)
[2024-11-21 23:09] LABS: HCG Qualitative Urine. Negative (Negative)
[2024-11-21 23:18] LABS: Add Urine Microscopic? YES; Bacteria Urine TRACE /hpf; RBC Urine 0-4 /hpf (0-2); Squamous Epithelial Cell Urine 0-4 /hpf (0-5)
[2024-11-22] MEDS: ciprofloxacin 500 mg Tablet PO (00:49)
[2024-11-22 00:52] VITALS: BP 115/59; PULSE 51; RESP 14; O2SAT 97
== END 2024-11-22 00:54 | disposition home or self-care (01) ==
PROVIDERS: Emergency Medicine; Emergency Provider Physician Assistant; PCP Family Medicine Adult Medicine
DX: R10.11 Right upper quadrant pain (principal); K80.00 Calculus of gallbladder with acute cholecystitis without obstruction
CPT/HCPCS: 36415; 76705; 80053; 81001; 81025; 83690; 85025; 96361; 96374; 96375; 99284; J1885; J2405; J7030

== ENCOUNTER 2024-12-07 09:42 | Day surgery (SDC) | payer OTHER, SELFPAY ==
[2024-12-07] VITALS (20 sets, daily range): BP systolic 108–160; BP diastolic 59–119; PULSE 39–109; RESP 10–18; TEMP 36.1–36.5; O2SAT 91–100; BMI 36.1
--- NOTE | 2024-12-07 09:14 | W.PM.OPSUD ---
Surgery/Procedure H&P Update DATE OF PROCEDURE: December 07, 2024 DATE H&P PERFORMED: 11/24/24 H&P UPDATE INFORMATION: I have reviewed H&P completed within last 30 days, I have examined patient prior to procedure, No changes to prior documentation and H&P is in [facility] EMR on date indicated PLANNED PROCEDURE: Operation Date: 12/07/24 11:25 Proposed Procedures p Laparoscopic Cholecystectomy Possible Open 01739 R10.11(Not Applicable) - Bill Doyle MD
[2024-12-07] MEDS: sodium chloride 0.9% 1,000 ML 30 ML IV (10:35)
[2024-12-07] MEDS: VANCOMYCIN ADD-Vantage 1,000 MG in 0.9% NaCl ADD-Vantage 250 ML 250 MG IV (10:36)
--- NOTE | 2024-12-07 10:39 | P.ANESASSM_ITS ---
Pre-Anesthetic Assessment Height/Weight: Height 1.6 m Weight 92.533 kg Temp Pulse Resp BP Pulse Ox O2 Del Method 97.7 F 56 L 18 151/93 98 Room Air 12/07/24 10:15 12/07/24 10:15 12/07/24 10:15 12/07/24 10:15 12/07/24 10:15 12/07/24 10:20 Operation Date: 12/07/24 11:25 Proposed Procedures p Laparoscopic Cholecystectomy Possible Open 55684 R10.11(Not Applicable) - Bill Doyle MD Familial anesthetic complications: None Was Beta Karina taken within 24 hours: N/A Was Clonidine taken within 24 hours: N/A Last intake: Intake Last Liquid Date 12/06/24 Last Liquid Time 21:00 Last Solid Date 12/06/24 Last Solid Time 21:00 Social No alcohol and No tobacco Exam alert, oriented x 3, clear to auscultation bilaterally and regular rate & rhythm Airway Mallampati: Class II Dentition: full CV/HEM Atrial Fibrillation (after an anaphylactic reaction) hx gestational HTN Metabolic Thyroid Disease PCOS Metabolic syndrome [facility]/skel Rheumatoid Arthritis Anesthetic Plan ASA status: 2 Anesthesia: General Risk of > 500 ml blood loss (7ml/kg in children): No Medications/Allergies Home Medications ?Medication ?Instructions ?Recorded ?Confirmed ?Last Taken ?Type levothyroxine 50 mcg tablet 50 mcg PO DAILY #90 tabs 1 10/11/23 12/03/24 12/02/24 Rx hydrocodone 5 mg-acetaminophen 325 1 tab PO Q4H PRN pa in #10 tabs 11/22/24 12/03/24 Unknown Rx mg tablet ondansetron 4 mg disintegrating 4 mg PO .q6-8h PRN robert sea and 11/22/24 12/03/24 Unknown Rx tablet vomiting #10 tabs ciprofloxacin HCl 500 mg tablet 500 mg PO BID 5 days # 10 tabs 11/24/24 12/03/24 12/02/24 Rx pantoprazole 40 mg tablet,delayed 40 mg PO DAILY 30 da ys #30 tabs 11/24/24 12/03/24 12/02/24 Rx release (Protonix) etonogestrel 0.12 mg-ethinyl 1 vag ring vaginal ONCE # 3 ea 12/01/24 12/03/24 Unknown Rx estradiol 0.015 mg/24 hr vaginal ring (NuvaRing) Allergies Allergy/AdvReac Type Severity Reaction Status Date / Time adalimumab (From Humira) Allergy Intermediate ALGY-Hives Verified 12/03/24 16:24 clindamycin Allergy Intermediate ALGY-Rash Verified 12/03/24 16:24 sulfamethoxazole (From Allergy Intermediate ALGY-Difficulty Verified 12/03/24 16:24 Bactrim) Breathing trimethoprim (From Bactrim) Allergy Intermediate ALGY-Difficulty Verified 12/03/24 16:24 Breathing amoxicillin Allergy Mild ALGY-Rash Verified 12/03/24 16:24 tree nut Allergy ALGY-Anaphy Verified 12/03/24 16:24 laxis metoclopramide (From Reglan) AdvReac Mild ADR-Muscle Verified 12/03/24 16:24 Pain Current Medications Generic Name Dose Route Start Last Admin Trade Name Freq PRN Reason Stop Dose Admin Vancomycin HCl 1,000 mg/ 250 mls @ 250 mls/hr 12/07/24 09:48 12/07/24 10:36 Sodium Chloride IV 12/07/24 10:47 250 mls/hr [employer] Administration Protocol Sodium Chloride 1,000 mls @ 30 mls/hr 12/07/24 10:00 12/07/24 10:35 Sodium Chloride 0.9% IV 12/08/24 09:59 30 mls/hr .Q24H REMEDIOS Administration PFSH Anesthesia Medical History Vaginal delivery Asthma with allergic rhinitis Tinea corporis Hypothyroidism PCOS (polycystic ovarian syndrome) Irregular periods High risk medication use PSVT (paroxysmal supraventricular tachycardia) BBB (bundle branch block) Right Kidney stone on left side Surgical History S/P ACL repair History of appendectomy Family History Brother Rheumatoid arthritis Mother Gallbladder disease Sister Gallbladder disease Other CAD (coronary artery disease) Diabetes Family history of premature coronary artery disease Hyperlipidemia Hypertension Denies family history of Colon cancer Ovarian cancer Heart disease Breast cancer Uterine cancer Thyroid disease Stroke Social History Smoking and tobacco/nicotine status: never used tobacco/nicotine Data Anesthesia Cardiac Studies: No Data to Display
[2024-12-07] MEDS: scopolamine 1 mg PATCH 1 PATCH TRANSDERMA (10:40)
[2024-12-07] MEDS: BUPivacaine 0.25% INJ 30 mL INJECTION (11:22)
[2024-12-07] MEDS: lidocaine-epi 1% PF 1:200,000 30 mL SDV INJECTION (11:22)
[2024-12-07] MEDS: fentaNYL 50 mcg/mL INJ 2mL IVP (12:20)
[2024-12-07] MEDS: midazolam 1 mg/mL INJ 2 mL 2 MG IVP (12:37)
--- NOTE | 2024-12-07 13:00 | P.OP_ITS ---
Operative Report Date of procedure: December 07, 2024 Pre-op diagnosis: Symptomatic cholelithiasis Post-op diagnosis: Same Post-op findings: Normal biliary anatomy, adhesions from the omentum to the gallbladder Procedure done: Laparoscopic cholecystectomy Implants: None Specimens removed/disposition: Gallbladder Surgeon: Bill Doyle MD [employer] Sales Representative: MAURY OR Staff Estimated blood loss: 5 Brief History: 24-year-old female with symptomatic cholelithiasis who presented for lap jo. Risk and benefits were discussed and documented in my preop note Procedure: Patient was brought into the OR, she was placed in a supine position. General anesthesia was given. The abdomen was prepped and draped in the usual sterile fashion. A timeout was conducted. I accessed the abdomen via a 5 mm Optiview port in the left upper quadrant. Initial pneumoperitoneum was obtained and no evidence of visceral injury during entry was noted. At 12 mm trocar was placed in the supraumbilical position under direct visualization. Additional 5 mm trocars were placed in the epigastrium right upper quadrant and right flank under direct visualization. The gallbladder was grasped from the fundus and retracted cephalad, I then grasped the infundibulum and retracted in the inferolateral direction exposing the hepatocystic triangle. The peritoneum anterior to the hepatocystic triangle was opened with electrocautery, I carried this opening in the medial and lateral direction to the edges of the liver and then on the sides of the gallbladder to allow for better exposure. With careful blunt dissection as well as electrocautery I was able to encircle the cystic duct and artery, I also elevated lower third of the gallbladder from the liver bed, thus creating a critical view of safety. The cystic duct and artery were double clipped proximally and single clipped distally and transected. The gallbladder was removed from the liver bed using electrocautery. The gallbladder was retrieved in an Endo Catch bag via the umbilical trocar site. The liver bed and clips were inspected the area was hemostatic, there was no evidence of bile leak the clips appeared to be in good position. The liver bed was irrigated and suctioned. The medical trocar was removed and umbilical trocar site was closed with a 0 Vicryl Warren-Reggie suture passer under direct visualization. The epigastrium right upper quadrant right flank trocars were removed under direct visualization, the left upper quadrant trocar was used to evacuate the pneumoperitoneum and subsequently removed. Local anesthesia was infiltrated. Hemostasis was achieved from the trocar sites. The wounds were closed in layers using #3-0 Vicryl for the subcutaneous tissue #4 Monocryl for the skin. At the end of the procedure all counts were correct, the patient tolerated well the procedure was transferred to the PACU in stable condition.
[2024-12-07 13:37] LABS: OR HCG Qualitative Urine Negative (Negative)
[2024-12-07] MEDS: oxyCODONE 5 mg IR Tab/Cap PO (13:57)
--- NOTE | 2024-12-07 15:05 | ANE.PACU2 ---
Inpatient post-anesthesia follow up: Airway intact: Yes Vital signs: Temperature 97.6 F Pulse Rate 62 Respiratory Rate 18 Blood Pressure 142/86 Pulse Oximetry 97 Oxygen Delivery Me thod Room Air Oxygen Flow Rate 3 Fraction of Inspir ed Oxygen Hydration adequate: Yes Nausea and vomiting: No Pain level: 1 Mental status: Baseline Additional Comments: Patient experienced some generalized itchiness in phase II recovery. States she has sensitive skin. No other symptoms. No rash, but erythematous streaks are visible in the areas where she was scratching herself (scratch gale). Informed patient if she develops any signs of hives, shortness of breath, tongue swelling to go to ER, since these would indicate possible allergic reaction.
== END 2024-12-07 15:05 | disposition home or self-care (01) ==
PROVIDERS: Anesthesiology; PCP Family Medicine Adult Medicine; Visit Provider Surgery
PROC: 0FT44ZZ Resection of Gallbladder, Percutaneous Endoscopic Approach (ICD-10-PCS; CPT 47562; principal; 2024-12-07 11:15)
DX: K80.10 Calculus of gallbladder with chronic cholecystitis without obstruction (principal); E28.2 Polycystic ovarian syndrome; E03.9 Hypothyroidism, unspecified; Z79.890 Hormone replacement therapy; Z79.899 Other long term (current) drug therapy; Z79.3 Long term (current) use of hormonal contraceptives; Z88.2 Allergy status to sulfonamides; Z88.8 Allergy status to other drugs, medicaments and biological substances; Z88.0 Allergy status to penicillin
CPT/HCPCS: 47562; 81025; 88304; A4216; J0131; J1100; J1171; J1200; J2250; J2405; J2704; J2710; J3010; J3370; J3490; J7030; J7050; J9999

== ENCOUNTER 2024-12-17 00:46 | Emergency (ER) | payer OTHER, SELFPAY ==
[2024-12-17] VITALS (10 sets, daily range): BP systolic 104–125; BP diastolic 59–83; PULSE 49–84; RESP 16–18; TEMP 37; O2SAT 95–100; BMI 36.1
--- NOTE | 2024-12-17 00:54 | ED_ITS ---
HPI - Abdominal Pain 2 General: Chief Complaint: Abdominal Pain Stated Complaint: abdomen pain Time Seen by Provider: 12/17/24 00:49 History of Present Illness: Patient brought in by EMS with complaints of epigastric and left upper quadrant abdominal pain. She has had her gallbladder out approximately 2 weeks ago. She said this pain is different than the surgical pain. This pain started approximate hour and a half after she ate a hamburger. She rated sharp stabbing 10 out of 10 pain. The patient has received 12.5 mg of Phenergan and 100 mcg total of fentanyl now rates the pain a 3 out of 10. Related Data Date of Last Menstrual Period: 11/25/24 Previous Rx's ?Medication ?Instructions ?Recorded levothyroxine 50 mcg tablet 50 mcg PO DAILY #90 tabs 1 10/11/23 hydrocodone 5 mg-acetaminophen 325 1 tab PO Q4H PRN pa in #10 tabs 11/22/24 mg tablet ondansetron 4 mg disintegrating 4 mg PO .q6-8h PRN robert sea and 11/22/24 tablet vomiting #10 tabs pantoprazole 40 mg tablet,delayed 40 mg PO DAILY 30 da ys #30 tabs 11/24/24 release (Protonix) etonogestrel 0.12 mg-ethinyl 1 vag ring vaginal ONCE # 3 ea 12/01/24 estradiol 0.015 mg/24 hr vaginal ring (NuvaRing) hydrocodone 5 mg-acetaminophen 325 1 tab PO Q6H PRN pa in #14 tabs 12/17/24 mg tablet ondansetron HCl 4 mg tablet 4 mg PO Q8H PRN nausea and 12/17/24 vomiting #14 tabs Allergies Allergy/AdvReac Type Severity Reaction Status Date / Time adalimumab (From Humira) Allergy Intermediate ALGY-Hives Verified 12/17/24 00:55 clindamycin Allergy Intermediate ALGY-Rash Verified 12/17/24 00:55 sulfamethoxazole (From Allergy Intermediate ALGY-Difficulty Verified 12/17/24 00:55 Bactrim) Breathing trimethoprim (From Bactrim) Allergy Intermediate ALGY-Difficulty Verified 12/17/24 00:55 Breathing amoxicillin Allergy Mild ALGY-Rash Verified 12/17/24 00:55 tree nut Allergy ALGY-Anaphy Verified 12/17/24 00:55 laxis metoclopramide (From Reglan) AdvReac Mild ADR-Muscle Verified 12/17/24 00:55 Pain Review of Systems 2 General: Reports: 10 or more systems reviewed and unremarkable except in HPI and below PFSH ED 2 PFSH: Medical History Encounter for induction of labor Vaginal delivery Asthma with allergic rhinitis Tinea corporis Hypothyroidism PCOS (polycystic ovarian syndrome) Irregular periods High risk medication use PSVT (paroxysmal supraventricular tachycardia) BBB (bundle branch block) Right Kidney stone on left side Surgical History S/P ACL repair History of appendectomy Family History Brother Rheumatoid arthritis Mother Gallbladder disease Sister Gallbladder disease Other CAD (coronary artery disease) Diabetes Family history of premature coronary artery disease Hyperlipidemia Hypertension Denies family history of Colon cancer Ovarian cancer Heart disease Breast cancer Uterine cancer Thyroid disease Stroke Social History Smoking and tobacco/nicotine status: never used tobacco/nicotine Female Reproductive History: Date of last menstrual period: 11/25/24 Physical Exam 2 Const: COMMON NORMALS: no acute distress, average body habitus, patient oriented x3, no limitations, healthy appearing, alert and well nourished HENMT: COMMON NORMALS: normocephalic, atraumatic, hearing grossly normal bilaterally, external ears normal, Normal external nose present, moist oral mucous membranes and oropharynx normal HEAD & SCALP: normocephalic and atraumatic NOSE: Normal external nose present EXTERNAL EAR: Yes external ears normal Neck/C-Spine: COMMON NORMALS: no JVD Chest: COMMONS NORMALS: normal inspection of the chest and normal palpation of entire chest wall Resp: COMMON NORMALS: normal respiratory effort, No retractions, No use of accessory muscles and clear to auscultation bilaterally AUSCULTATION: clear to auscultation bilaterally Cardio: COMMON NORMALS: no JVD, regular rate, regular rhythm, S1 normal heart sound present, S2 normal heart sound present, No clicks present (Cardio), No murmurs present (Cardio) and No rub (Cardio) RATE: regular rate RHYTHM: r egular rhythm HEART SOUNDS: S1 normal heart sound present and S2 normal heart sound present GI: COMMON NORMALS: Normal to inspection, nondistended, normoactive bowel sounds present, Soft to palpation, No hepatosplenomegaly present and no masses; negative for non-tender (Moderate tenderness epigastric and left upper quadrant region) PALPATION: Yes Soft to palpation and Yes No hepatosplenomegaly present Neuro: COMMON NORMALS: patient oriented x3 SENSORIUM/ORIENTATION: Yes alert Course 2 Vital Signs: Vital signs: Vital Signs Temperature 98.6 F 12/17/24 00:49 Pulse Rate 62 12/17/24 04:27 Respiratory Rate 16 12/17/24 04:27 Blood Pressure 104/59 12/17/24 04:27 Pulse Oximetry 95 12/17/24 04:27 Oxygen Delivery Me thod Room Air 12/17/24 03:30 MDM - Abdominal Pain Medical Decision Making Lab work revealed white count 11.7, hemoglobin 10.4 medic at 33.2, otherwise unremarkable, urine was contaminated with 11-20 squamous cells, patient was given 4 mg Zofran, 1 [place] 5 mg, patient stated this helped her pain and nausea. Patient be discharged home. Lab Data 12/17/24 01:19 12/17/24 01:19 Labs/Radiology: Laboratory Results WBC 11.77 10^3/uL (3.29-11.43) H 12/17/24 01:19 RBC 4.15 10^6/uL (3.85-5.65) 12/17/24 01:19 Hgb 10.40 g/dL (11.27-16.99) L 12/17/24 01:19 Hct 33.2 % (36-47) L 12/17/24 01:19 MCV 80.0 fl (85-98) L 12/17/24 01:19 MCH 25.1 pg (27-33) L 12/17/24 01:19 MCHC 31.3 g/dL (30-55) 12/17/24 01:19 RDW 14.5 % (12.1-15.1) 12/17/24 01:19 Plt Count 361 10^3/cmm (157-399) 12/17/24 01:19 MPV 9.8 fL (7.4-10.4) 12/17/24 01:19 Neut % (Auto) 78.1 % 12/17/24 01:19 Lymph % (Auto) 14.4 % 12/17/24 01:19 [place] % (Auto) 6.3 % 12/17/24 01:19 Eos % (Auto) 0.5 % 12/17/24 01:19 Baso % (Auto) 0.3 % 12/17/24 01:19 Neut # (Auto) 9.18 10^3/uL (1.8-7.7) H 12/17/24 01:19 Lymph # (Auto) 1.7 10^3/uL (0.8-4.8) 12/17/24 01:19 [place] # (Auto) 0.7 10^3/uL (0.2-0.9) 12/17/24 01:19 Eos # (Auto) 0.1 10^3/uL (0.0-0.8) 12/17/24 01:19 Baso # (Auto) 0.0 10^3/uL (0.0-0.1) 12/17/24 01:19 Nucleated RBC % (auto) 0 % 12/17/24 01:19 Nucleated RBCs # 0.0 /100WBC 12/17/24 01:19 Sodium 139 mmol/L (136-145) 12/17/24 01:19 Potassium 3.9 mmol/L (3.5-5.1) 12/17/24 01:19 Chloride 107 mmol/L (98-107) 12/17/24 01:19 Carbon Dioxide 22 mmol/L (22-29) 12/17/24 01:19 Anion Gap 13.9 (5-19) 12/17/24 01:19 BUN 14 mg/dL (6-20) 12/17/24 01:19 Creatinine 0.8 mg/dL (0.5-0.9) 12/17/24 01:19 GFR Calculation 87.4 mL/min (90-130) L 12/17/24 01:19 Glucose 115 mg/dL (65-115) 12/17/24 01:19 Calculated Osmolality 289 mOsm/kg (285-295) 12/17/24 01:19 Calcium 8.5 mg/dL (8.5-10.5) 12/17/24 01:19 Magnesium 1.9 mg/dL (1.7-2.3) 12/17/24 01:19 Total Bilirubin 0.4 mg/dL (0.15-1.2) 12/17/24 01:19 AST 54 U/L (0-32) H 12/17/24 01:19 ALT 31 U/L (0-33) 12/17/24 01:19 Alkaline Phosphatase 149 U/L (35-105) H 12/17/24 01:19 Total Protein 6.8 g/dL (6.6-8.7) 12/17/24 01:19 Albumin 4.0 g/dL (3.5-5.2) 12/17/24 01:19 Globulin 2.8 g/dL (1.3-4.6) 12/17/24 01:19 Lipase 57 U/L (13-60) 12/17/24 01:19 Urine Color Yellow (Yellow) 12/17/24 01:24 Urine Appearance Cloudy (CLEAR) A 12/17/24 01:24 Urine pH 5.0 (5-7) 12/17/24 01:24 Ur Specific [place] 1.021 (1.005-1.030) 12/17/24 01:24 Urine Protein Negative (Negative) 12/17/24 01:24 Urine Glucose (UA) Negative (Normal) 12/17/24 01:24 Urine Ketones Negative (Negative) 12/17/24 01:24 Urine Blood Negative (Negative) 12/17/24 01:24 Urine Nitrate Negative (Negative) 12/17/24 01:24 Urine Bilirubin Negative (Negative) 12/17/24 01:24 Urine Urobilinogen 0.2 mg/dL (Negative) 12/17/24 01:24 Ur Leukocyte Esterase 1+ (Negative) A 12/17/24 01:24 Urine RBC 0-2 /hpf (0-2) 12/17/24 01:24 Urine WBC 21-50 /hpf (0-5) H 12/17/24 01:24 Ur Squamous Epith Cells 11-20 /hpf (0-5) H 12/17/24 01:24 Amorphous Sediment Not Reportable 12/17/24 01:24 Urine Bacteria 2+ /hpf (NONE) H 12/17/24 01:24 Hyaline Casts 2.87 /lpf 12/17/24 01:24 All radiology interpretation(s) finalized by discharge Discharge Plan Discharge Patient Disposition: Home Clinical Impression: Abdominal pain Qualifiers: Abdominal location: epigastric Qualified Code(s): R10.13 - Epigastric pain Condition: Stable Prescriptions: New hydrocodone-acetaminophen 5-325 mg tablet 1 tab PO Q6H PRN (Reason: pain) Qty: 14 0RF ondansetron HCl 4 mg tablet 4 mg PO Q8H PRN (Reason: nausea and vomiting) Qty: 14 0RF No Action etonogestrel-ethinyl estradiol [NuvaRing] 0.12-0.015 mg/24 hr ring 1 vag ring vaginal ONCE Qty: 3 3RF Rx Instructions: insert intravaginally every 21 days; please allow for early refills for continuous cycling pantoprazole [Protonix] 40 mg tablet,delayed release (DR/EC) 40 mg PO DAILY 30 Days Qty: 30 0RF levothyroxine 50 mcg tablet 50 mcg PO DAILY Qty: 90 0RF Rx Instructions: Take 1 tablet daily hydrocodone-acetaminophen 5-325 mg tablet 1 tab PO Q4H PRN (Reason: pain) Qty: 10 0RF ondansetron 4 mg tablet,disintegrating 4 mg PO .q6-8h PRN (Reason: nausea and vomiting) Qty: 10 0RF Discharge Orders: Discharge ED (Routine); Ordered 12/17/24 Ordered By: Chaz Landaverde Patient Instructions: Abdominal Pain (ED), Opioid Safety, Pain Management Activity Restrictions/Additional Instructions: activity restrictions/additional instructions: Thank you for choosing [facility] for your healthcare needs today. Please realize that you were seen in the emergency department and that we are providing you with an emergency medical screening exam and this may not be a complete and all exclusive of all testing and/or medical workup we may need to determine your element or severity of your illness. It is very important that you follow-up as instructed with your primary care provider or specialist for the additional evaluation and to discuss your medical treatment plan. You may return to the emergency department should you have concerns or if your condition changes or worsens in any way. Print Language: Lao Coding Level of Care Code ED Disability Coordinator for Paulina Sawant
[2024-12-17 01:24] LABS: Basophils % 0.3 %; Eosinophils # 0.1 10^3/uL (0.0-0.8); Eosinophils % 0.5 %; Hematocrit 33.2 % (36-47); Lymphocytes # 1.7 10^3/uL (0.8-4.8); Lymphocytes % 14.4 %; Mean Corpuscular HGB Conc 31.3 g/dL (30-55); Mean Corpuscular Hemoglobin 25.1 pg (27-33); Mean Platelet Volume 9.8 fL (7.4-10.4); Monocytes # 0.7 10^3/uL (0.2-0.9); Monocytes % 6.3 %; Neutrophils # 9.18 10^3/uL (1.8-7.7); Neutrophils % 78.1 %; Nucleated Red Blood Cells % 0 %; Platelet Count 361 10^3/cmm (157-399); Red Blood Count 4.15 10^6/uL (3.85-5.65); Red Cell Distribution Width 14.5 % (12.1-15.1); White Blood Count 11.77 10^3/uL (3.29-11.43)
[2024-12-17 01:30] LABS: Bilirubin Urine Negative (Negative); Blood Urine Negative (Negative); Glucose Urine UA Negative (Normal); Ketones Urine Negative (Negative); Leukocyte Esterase Urine 1+ (Negative); Nitrate Urine Negative (Negative); Protein Urine Negative (Negative); Specific Gravity, Urine 1.021 (1.005-1.030); Urine Appearance Cloudy (CLEAR); Urine Color Yellow (Yellow); Urobilinogen Urine 0.2 mg/dL (Negative)
[2024-12-17 01:35] LABS: Add Urine Microscopic? YES; Bacteria Urine 2+ /hpf; Hyaline Casts Urine 2.87 /lpf; RBC Urine 0-2 /hpf (0-2); WBC Urine 21-50 /hpf (0-5)
[2024-12-17 01:40] LABS: Alanine Aminotransferase 31 U/L (0-33); Alkaline Phosphatase 149 U/L (35-105); Anion Gap 13.9 (5-19); Aspartate Amino Transferase 54 U/L (0-32); Blood Urea Nitrogen 14 mg/dL (6-20); Calcium 8.5 mg/dL (8.5-10.5); Carbon Dioxide 22 mmol/L (22-29); Chloride 107 mmol/L (98-107); Globulin 2.8 g/dL (1.3-4.6); Glomerular Filtration Rate 87.4 mL/min (90-130); Glucose 115 mg/dL (65-115); Lipase 57 U/L (13-60); Magnesium 1.9 mg/dL (1.7-2.3); Osmolality Calculated 289 mOsm/kg (285-295); Potassium 3.9 mmol/L (3.5-5.1); Sodium 139 mmol/L (136-145); Total Bilirubin 0.4 mg/dL (0.15-1.2); Total Protein 6.8 g/dL (6.6-8.7)
[2024-12-17 02:04] LABS: Add Urine Culture? No
[2024-12-17] MEDS: ondansetron hcl ODT 4 mg Tab PO (02:40)
[2024-12-17] MEDS: HYDROcodone-acetaminophen 5-325 mg Tablet 1 TAB PO (02:44)
== END 2024-12-17 04:19 | disposition home or self-care (01) ==
PROVIDERS: Emergency Provider Emergency Medicine
DX: R10.13 Epigastric pain (principal)
CPT/HCPCS: 36415; 80053; 81001; 83690; 83735; 85025; 99283; J9999; Q0162